=== PATIENT | female | born 1945 | race Caucasian/White ===

== ENCOUNTER 2017-07-20 05:40 | Outpatient (CLI) | payer MEDICARE ==
[~2017-07-20] VITALS: Ht 170.2 cm; Wt 95.3 kg
[2017-07-20] MEDS ORDERED: LEVO100T PO (15:58)
[2017-07-20] MEDS ORDERED: MELO7.5T46 PO (15:58)
[2017-07-20] MEDS ORDERED: BUPR150T14 PO (15:58)
[2017-07-20] MEDS ORDERED: ALPR0.5T7 PO (15:58)
[2017-07-20] MEDS ORDERED: CITA40TA11 PO (15:58)
[2017-07-20] MEDS ORDERED: METO50TA15 PO (15:58)
[2017-08-20] MEDS ORDERED: ACHD5005 PO (08:28)
[2017-08-20] MEDS ORDERED: ALPR0.5T7 PO (08:28)
== END 2017-07-20 16:01 ==
LOC: PREOP 05:40
PROVIDERS: ATTEND Urology
DX: Z01.818 Encounter for other preprocedural examination (principal)

== ENCOUNTER 2017-07-21 08:10 | Day surgery (SDC) | payer MEDICARE, OTHER ==
[~2017-07-21] VITALS: Ht 170.2 cm; Wt 95.3 kg
--- NOTE | 2017-07-21 06:57 | Progress Note-Pre Operative ---
Pre-Operative Progress Note H&P Reviewed The H&P was reviewed, patient examined and no changes noted. Date Seen by Provider: July 21, 2017 Time Seen by Provider: 06:56 Date H&P Reviewed: July 21, 2017 Time H&P Reviewed: 06:56 Pre-Operative Diagnosis: CYSTOCELE, MIXED INCONTINENCE, ISD, OAB LORE BULLOCK MD July 21, 2017 6:57 am
[~2017-07-21 08:10] MED LIST: ALPR0.5T7 PO; BUPR150T14 PO; CITA40TA11 PO; LEVO100T PO; MELO7.5T46 PO; METO50TA15 PO
[2017-07-21 08:25] VITALS: BP 165/67
[2017-07-21] MEDS ORDERED: cefTRIAXone INJECTION 1,000 MG in NS (IVPB) 50 ML IV ONE (08:30)
[2017-07-21] MEDS ORDERED: NS (IVPB) 50 ML ONE (08:46)
[2017-07-21] MEDS ORDERED: LACTATED RINGERS 1,000 ML IV PRN ×2 (09:07→10:07)
[2017-07-21] MEDS ORDERED: SCOPOLAMINE 1.5 MG (TRANSDERM-SCOP) PATCH ONE (10:02)
[2017-07-21] MEDS ORDERED: FAMOTIDINE 20MG/2ML IV (PEPCID) ONE (10:02)
[2017-07-21] MEDS ORDERED: ONDANSETRON 4 MG/2 ML (SDV) Z0FRAN ONE ×2 (10:02→10:12)
[2017-07-21] MEDS ORDERED: LIDOCAINE PF 2% 5 ML (XYLOCAINE) VIAL ONE (10:12)
[2017-07-21] MEDS ORDERED: proPOfol 200 MG/20 ML (DIPRIVAN) VIAL IV ONE (10:12)
[2017-07-21] MEDS ORDERED: fentaNYL INJECTION 100 MCG/2 ML AMP ONE (10:12)
[2017-07-21] MEDS ORDERED: SEVOFLURANE (ULTANE) 15 ML INHAL SOLN ONE ×4 (10:12→11:37)
[2017-07-21] MEDS ORDERED: DEXAMETHASONE 10 MG/ML (DECADRON) 1 ML VIAL ONE (10:12)
[2017-07-21] MEDS ORDERED: SCOPOLAMINE 1.5 MG (TRANSDERM-SCOP) PATCH TOP ONE (10:15)
[2017-07-21] MEDS ORDERED: FAMOTIDINE 20MG/2ML IV (PEPCID) IV ONE (10:15)
[2017-07-21] MEDS ORDERED: ONDANSETRON 4 MG/2 ML (SDV) Z0FRAN IV ONE (10:15)
[2017-07-21] MEDS ORDERED: ESTRADIOL VAGINAL CREAM 42.5 GM (ESTRACE) VG ONE (10:21)
[2017-07-21] MEDS ORDERED: LIDOCAINE/EPI 1%-1:200,000 (XYLOCAINE) 10 ML VIAL ONE (10:21)
[2017-07-21] MEDS ORDERED: NEOSTIGMINE 1 MG/ML 5 ML SYRINGE ONE (12:00)
[2017-07-21] MEDS ORDERED: GLYCOPYRROLATE 0.2 MG/ML (ROBINUL) 2 ML VIAL ONE (12:00)
[2017-07-21] MEDS ORDERED: ROCURONIUM 10 MG/ML 5 ML SYRINGE IV ONE (12:05)
--- NOTE | 2017-07-21 12:12 | Progress Note-Post Operative ---
Post-Operative Progess Note Surgeon (s)/Coffee Sommelier (s) Surgeon LORE BULLOCK MD Coffee Sommelier: N/A Pre-Operative Diagnosis CYSTOCELE, MIXED INCONTINENCE, ISD, OAB Post-Operative Diagnosis SAME Procedure & Operative Findings Date of Procedure 07/21/17 Procedure Performed/Findings ANTERIOR REPAIR, PVS, AND CYSTO Anesthesia Type GENERAL Estimated Blood Loss Estimated blood loss (mL): LESS THAN 50CC Specimens/Packing Specimens Removed NONE TO PATH Packing: ESTRACE KERLIX VAG PACK LORE BULLOCK MD July 21, 2017 12:12 pm
[2017-07-21] MEDS ORDERED: KETOROLAC 30 MG/ML VIAL ONE (12:37)
[2017-07-21] MEDS: KETOROLAC 30 MG/ML VIAL IV PRN ×2 (12:44→21:09)
[2017-07-21] MEDS ORDERED: morphine INJ 10 MG/ML 1ML (SYR OR VIAL) ONE (12:50)
[2017-07-21] MEDS ORDERED: morphine INJ 10 MG/ML 1ML (SYR OR VIAL) IVP PRN (13:15)
[2017-07-21] MEDS ORDERED: ONDANSETRON 4 MG/2 ML (SDV) Z0FRAN IVP PRN (13:15)
[2017-07-21] MEDS ORDERED: MEPERIDINE (DEMEROL) INJ 50 MG/ML IVP PRN (13:15)
[2017-07-21 13:30] VITALS: BP 132/79
[2017-07-21] MEDS ORDERED: CATHETER FLUSH 10 ML SYR IV PRN (14:30)
[2017-07-21] MEDS: LACTATED RINGERS 1,000 ML IV SCH ×2 (14:40→21:09)
[2017-07-21] MEDS: HYDROcodone/APAP 10 MG/325 MG (LORTAB) TAB PO PRN ×3 (14:43→22:13)
[2017-07-21 16:23] VITALS: BP 147/86
[2017-07-21 19:43] VITALS: BP 135/71
--- NOTE | 2017-07-21 22:08 | OPERATIVE REPORT ---
DATE OF SERVICE: 07/21/2017 PREOPERATIVE DIAGNOSES: 1. Cystocele. 2. Mixed urinary incontinence with overactive bladder and intrinsic sphincter deficiency. POSTOPERATIVE DIAGNOSES: 1. Cystocele. 2. Mixed urinary incontinence with overactive bladder and intrinsic sphincter deficiency. OPERATION PERFORMED: Anterior repair, pubovaginal sling and cystoscopy. SURGEON: Shakir Bullock MD ANESTHESIA: General. COMPLICATIONS: None. DESCRIPTION OF PROCEDURE: Under satisfactory general anesthesia, the patient in extended lithotomy position, her genitalia were prepped and draped in the usual sterile fashion with a separate vaginal prep. Catheter was inserted and the bladder was drained. Anterior vaginal wall was infiltrated with lidocaine. An incision was made vertically in the anterior wall for several centimeters. It was dissected free from the underlying fascia and the fascia was approximated with interrupted 2-0 Vicryl giving a good support to the bladder. I went ahead and passed the Solyx pubovaginal sling with the device using the described technique. The sling was sitting nicely under the mid urethra with no twisting or tension and passage of a curved hemostat easily between it and the underlying tissue. I removed the Garcia catheter and performed cystoscopy to confirm the integrity of the bladder, ureters and urethra with no foreign body and positioning of the sling under the mid urethra. I filled the bladder for at least half of it, removed the cystoscope and manual Valsalva maneuver that was negative. I reinserted the Garcia catheter draining clear fluid. I excised the excess vaginal mucosa. Then, I approximated the vaginal mucosa with a running 2-0 Vicryl suture. Needle, sponge and instrument counts were correct x2. An Estrace vaginal pack was left in the vagina. ESTIMATED BLOOD LOSS: Less than 50 mL, none of which was replaced. The patient tolerated the procedure and the anesthesia well and was sent to recovery room in stable condition. Job ID: [id number] DocumentID: [id number] Dictated Date: 07/21/2017 12:18:47 Resident Services Manager Date: 07/21/2017 22:07:54 Dictated By: SHAKIR BULLOCK MD
[2017-07-22 00:32] VITALS: BP 124/75
[2017-07-22] MEDS: LACTATED RINGERS 1,000 ML IV SCH (04:41)
[2017-07-22 04:42] VITALS: BP 149/80
--- NOTE | 2017-07-22 07:48 | Anesthesia-General Post-Op ---
General Patient Condition Mental Status/LOC: Same as Preop Cardiovascular: Satisfactory Nausea/Vomiting: Absent Respiratory: Satisfactory Pain: Controlled Complications: Absent Post Op Complications Complications None Follow Up Care/Instructions Patient Instructions None needed. Anesthesia/Patient Condition Patient Condition Patient is doing well, no complaints, stable vital signs, no apparent adverse anesthesia problems. No complications reported per nursing. CARMEN PACHECO CRNA July 22, 2017 07:47
[2017-07-22 07:56] VITALS: BP 152/74
[2017-07-22] MEDS ORDERED: LEVOFLOXACIN 250 MG/50 ML IVPB 50 ML IV SCH (12:14)
--- NOTE | 2017-07-22 12:31 | Progress Note-Urology ---
Progress Note-Urology Progress Notes/Assess & Plan Progress/Assessment & Plan DOING WELL. VOIDED WITH NO RESIDUAL AND NO LEAKAGE. HAPPY. HOME WITH INSTRUCTIONS Final Diagnosis INCONTINENCE AND CYSTOCELE LORE BULLOCK MD July 22, 2017 12:31 pm
--- NOTE | 2017-07-22 12:33 | Discharge Inst-Urology ---
Discharge Inst-Urology Discharge Medications New, Converted, or Re-newed RX: RX on Chart Patient Instructions/Follow Up Plan Please make appointment to been seen in office NEXT WEEK week. Rest till then Keep bowels soft and mpving, take Miralax daily showers, no bath Increase oral fluids for 48 hours and then as needed. Diet and Activity as tolerated. If questions or concerns contact your physician Or seek help at emergency department. LORE BULLOCK MD July 22, 2017 12:33 pm
[2017-07-22] MEDS: KETOROLAC 30 MG/ML VIAL IV PRN (12:51)
[2017-08-20] MEDS ORDERED: ALPR0.5T7 PO (08:28)
[2017-08-20] MEDS ORDERED: ACHD5005 PO (08:28)
== END 2017-07-22 13:20 | disposition home or self-care (01) ==
LOC: SDC 08:10 → WS 13:48 → SDC 07-22 13:20
PROVIDERS: ATTEND Urology
DX: N81.10 Cystocele, unspecified (principal); N39.46 Mixed incontinence; N32.81 Overactive bladder; N36.42 Intrinsic sphincter deficiency (ISD); I25.10 Atherosclerotic heart disease of native coronary artery without angina pectoris; I10 Essential (primary) hypertension; J44.9 Chronic obstructive pulmonary disease, unspecified; G47.33 Obstructive sleep apnea (adult) (pediatric); F17.210 Nicotine dependence, cigarettes, uncomplicated; Z95.1 Presence of aortocoronary bypass graft; Z79.899 Other long term (current) drug therapy
CPT/HCPCS: 87081; 94664

== ENCOUNTER 2017-08-08 20:27 | Inpatient (IN) | payer MEDICARE, OTHER ==
[~2017-08-08] VITALS: Ht 167.6 cm; Wt 96.8 kg
[2017-08-08 22:26] LABS: BILIRUBIN,URINE NEGATIVE (NEGATIVE); CLARITY,URINE CLEAR; COLOR,URINE YELLOW; GLUCOSE, URINE (UA) NEGATIVE (NEGATIVE); KETONES,URINE NEGATIVE (NEGATIVE); LEUKOCYTE ESTERASE ,URINE NEGATIVE (NEGATIVE); NITRITE,URINE NEGATIVE (NEGATIVE); PH,URINE 6 (5-9); PROTEIN,URINE NEGATIVE (NEGATIVE); UROBILINOGEN,URINE NORMAL (NORMAL)
[2017-08-08] MEDS ORDERED: NS IV 1000 ML 1,000 ML IV SCH (22:30)
[2017-08-08] MEDS ORDERED: fentaNYL INJECTION 100 MCG/2 ML AMP IVP ONE (22:30)
--- NOTE | 2017-08-08 22:31 | ED Abdominal Pain ---
General Chief Complaint: Abdominal/GI Problems Stated Complaint: LOWER ABD PAIN AFTER BLADDER SURGERY Source of Information: Patient Exam Limitations: No Limitations (ANTELMO BHAT STUDENT) History of Present Illness Date Seen by Provider: Aug 08, 2017 Time Seen by Provider: 22:26 Initial Comments Patient presents to the emergency room with complaints of sharp abdominal pain in the left lower quadrant area for 2 days. She denies any nausea or vomiting but reports having constipation for which she took milk of magnesia and now she reports diarrhea. She reports having a cystocele, rectocele, bladder sling procedure on Jul 20 2017 by . She reports that she has not had any complications from the surgery. Timing/Duration: 1-2 Days Severity/Quality: Moderate Location: LLQ Radiation: No Radiation Activities at Onset: None Associated Symptoms: Denies Symptoms (ANTELMO BHAT STUDENT) Severity/Quality: Aching Location: LLQ Radiation: No Radiation Associated Symptoms: No Fever/Chills, No Nausea/Vomiting (CEDRICK JAMES MD ) Allergies and Home Medications Allergies Coded Allergies: Iodinated Contrast- Oral and IV Dye (Verified Allergy, Unknown, HIVES, ) Sulfa (Sulfonamide Antibiotics) (Verified Allergy, Unknown, HIVES, 07/20/17 ) codeine (Verified Allergy, Unknown, NAUSEA, 07/20/17) lisinopril (Verified Allergy, Unknown, 08/09/17) Home Medications Alprazolam 0.5 Mg Tablet, 0.5 MG PO HS, (Reported) Bupropion HCl 150 Mg Tablet.er, 150 MG PO DAILY, (Reported) Citalopram Hydrobromide 40 Mg Tablet, 40 MG PO DAILY, (Reported) Levothyroxine Sodium 100 Mcg Tablet, 100 MCG PO DAILY, (Reported) Meloxicam 7.5 Mg Tablet, 7.5 MG PO DAILY PRN for MUSCLE SPASMS, (Reported) Metoprolol Tartrate 50 Mg Tablet, 50 MG PO DAILY, (Reported) Patient Home Medication List Home Medication List Reviewed: Yes (ANTELMO BHAT STUDENT) Home Medication List Reviewed: Yes (CEDRICK JAMES MD) Review of Systems Constitutional: see HPI; No chills, No diaphoresis EENTM: See HPI Respiratory: See HPI; Denies Cough Cardiovascular: See HPI; Denies Chest Pain Gastrointestinal: See HPI, Abdomen Distended, Abdominal Pain, Constipated, Diarrhea Genitourinary: See HPI; Denies Burning, Denies Discharge Musculoskeletal: see HPI; No back pain Skin: see HPI; No change in color Psychiatric/Neurological: See HPI; Denies Anxiety Endocrine: See HPI; Denies Excessive Sweating Hematologic/Lymphatic: See HPI; Denies Anemia (ANTELMO BHAT) All Other Systems Reviewed Negative Unless Noted: Yes (CEDRICK JAMES MD) Past Wifviqf-Rialqf-Ynsewp Hx Past Med/Social Hx: Reviewed Nursing Past Med/Soc Hx (ANTELMO BHAT) Past Med/Social Hx: Reviewed Nursing Past Med/Soc Hx (CEDRICK JAMES MD) Patient Social History Alcohol Use: Denies Use Recreational Drug Use: No Type Used: Cigarettes Recent Foreign Travel: No Contact w/Someone Who Travel: No Recent Hopitalizations: No (ANTELMO BHAT) Immunizations Up To Date Tetanus Booster (TDap): Unknown (ANTELMO BHAT) Seasonal Allergies Seasonal Allergies: No (ANTELMO BHAT) Past Medical History Surgeries: Yes (thyroid ablation) Adenoidectomy, Appendectomy, CABG, Gallbladder, Hysterectomy, Tonsillectomy Respiratory: Yes Sleep Apnea Currently Using CPAP: Yes Cardiac: Yes Coronary Artery Disease, High Cholesterol, Hypertension Neurological: Yes Headaches /Migraines MOBILE UI DESIGNER History: Hysterectomy Kidney Stones Gastrointestinal: Yes Gastroesophageal Reflux, Chronic Constipation, Diverticulosis Musculoskeletal: Yes Arthritis, Chronic Back Pain Endocrine: Yes (grave's disease) Cancer: No Psychosocial: Yes Anxiety, Depression Integumentary: No Blood Disorders: Yes (anemia prior to hyst) (ANTELMO BHAT) Family Medical History Reviewed Nursing Family Hx (ANTELMO BHAT) Reviewed Nursing Family Hx (CEDRICK JAMES MD) Physical Exam Vital Signs Capillary Refill : (ANTELMO BHAT STUDENT) General Appearance: WD/WN, no apparent distress HEENT: PERRL/EOMI, normal ENT inspection Neck: non-tender, full range of motion Respiratory: chest non-tender, lungs clear Cardiovascular: normal peripheral pulses, regular rate, rhythm Gastrointestinal: normal bowel sounds, distended, guarding, tenderness ( patient is very tender to the left lower quadrant area on exam.) Extremities: normal range of motion, non-tender Back: normal inspection, no CVA tenderness Neurologic/Psychiatric: alert, oriented x 3 Skin: normal color, warm/dry Lymphatic: no adenopathy (Y) (ANTELMO BHAT STUDENT) General Appearance: WD/WN, mild distress Cardiovascular: regular rate, rhythm, no murmur Gastrointestinal: soft, tenderness (patient is very tender to the left lower quadrant area on exam.) (CEDRICK JAMES MD) Focused Exam Lactate Level 08/09/17 00:15: (CEDRICK JAMES MD) Lactic Acid Level Laboratory Tests Test 08/09/17 00:15 (CEDRICK JAMES MD) Progress/Results/Core Measures Results/Orders Lab Results Laboratory Tests Test 08/08/17 22:10 08/09/17 00:15 Range/Units White Blood Count 10.8 4.3-11.0 10^3/uL Red Blood Count 4.96 4.35-5.85 10^6/uL Hemoglobin 14.7 11.5-16.0 G/DL Hematocrit 45 35-52 % Mean Corpuscular Volume 91 80-99 FL Mean Corpuscular Hemoglobin 30 25-34 PG Mean Corpuscular Hemoglobin Concent 33 32-36 G/DL Red Cell Distribution Width 14.9 H 10.0-14.5 % Platelet Count 275 130-400 10^3/uL Mean Platelet Volume 10.1 7.4-10.4 FL Neutrophils (%) (Auto) 58 42-75 % Lymphocytes (%) (Auto) 25 12-44 % Monocytes (%) (Auto) 15 H 0-12 % Eosinophils (%) (Auto) 2 0-10 % Basophils (%) (Auto) 1 0-10 % Neutrophils # (Auto) 6.2 1.8-7.8 X 10^3 Lymphocytes # (Auto) 2.7 1.0-4.0 X 10^3 Monocytes # (Auto) 1.6 H 0.0-1.0 X 10^3 Eosinophils # (Auto) 0.3 0.0-0.3 10^3/uL Basophils # (Auto) 0.1 0.0-0.1 10^3/uL Urine Color YELLOW Urine Clarity CLEAR Urine pH 6 5-9 Urine Specific Crewe 1.010 L 1.016-1.022 Urine Protein NEGATIVE NEGATIVE Urine Glucose (UA) NEGATIVE NEGATIVE Urine Ketones NEGATIVE NEGATIVE Urine Nitrite NEGATIVE NEGATIVE Urine Bilirubin NEGATIVE NEGATIVE Urine Urobilinogen NORMAL NORMAL MG/DL Urine Leukocyte Esterase NEGATIVE NEGATIVE Urine RBC (Auto) NEGATIVE NEGATIVE Urine RBC NONE /HPF Urine WBC NONE /HPF Urine Squamous Epithelial Cells 10-25 H /HPF Urine Crystals NONE /LPF Urine Bacteria TRACE /HPF Urine Casts NONE /LPF Urine Mucus NEGATIVE /LPF Urine Culture Indicated NO Sodium Level 137 135-145 MMOL/L Potassium Level 4.1 3.6-5.0 MMOL/L Chloride Level 103 98-107 MMOL/L Carbon Dioxide Level 21 21-32 MMOL/L Anion Gap 13 5-14 MMOL/L Blood Urea Nitrogen 17 7-18 MG/DL Creatinine 1.16 0.60-1.30 MG/DL Estimat Glomerular Filtration Rate 46 BUN/Creatinine Ratio 15 Glucose Level 86 70-105 MG/DL Calcium Level 10.0 8.5-10.1 MG/DL Total Bilirubin 1.2 H 0.1-1.0 MG/DL Aspartate Amino Transf (AST/SGOT) 11 5-34 U/L Alanine Aminotransferase (ALT/SGPT) 11 0-55 U/L Alkaline Phosphatase 142 H 40-136 U/L Total Protein 7.9 6.4-8.2 GM/DL Albumin 4.5 3.2-4.5 GM/DL Amylase Level 72 25-125 U/L Lipase 29 8-78 U/L (CEDRICK JAMES MD) My Orders Orders - CEDRICK JAMES MD Fentanyl Injection (Sublimaze Injection (08/08/17 22:30) Comprehensive Metabolic Panel (08/08/17 22:19) Lipase (08/08/17 22:19) Amylase (08/08/17 22:19) Ua Culture If Indicated (08/08/17 22:19) Saline Lock/Iv-Start (08/08/17 22:19) Cbc With Automated Diff (08/08/17 22:19) Ns Iv 1000 Ml (Sodium Chloride 0.9%) (08/08/17 22:30) Ct Abdomen/Pelvis Wo (08/08/17 23:28) Fentanyl Injection (Sublimaze Injection (08/09/17 00:10) Lactic Acid Analyzer (08/09/17 00:10) Blood Culture (08/09/17 00:10) Ceftriaxone Injection (Rocephin Injectio (08/09/17 00:15) (CEDRICK JAMES MD) Medications Given in ED Current Medications Medications Dose Ordered Sig/Forrest Route Start Time Stop Time Status Last Admin Dose Admin Ceftriaxone Sodium 1000 mg/ Sodium Chloride 50 ml @ 100 mls/hr ONCE ONCE IV 08/09/17 00:15 08/09/17 00:44 08/09/17 00:23 100 MLS/HR Fentanyl Citrate 50 mcg ONCE ONCE IVP 08/08/17 22:30 08/08/17 22:31 DC 08/08/17 22:37 50 MCG (CEDRICK JAMES MD) Progress Progress Note : Progress Note I have seen and evaluated the patient and agree with above except as indicated. I have directed the plan of care. Patient is here with left-sided abdominal pain. She did have bladder surgery few weeks ago is not having any problems from that. Denies fever currently. Tender on left abdomen. IV, labs, fentanyl [address] abdomen and pelvis ordered. This does show significant diverticulitis in the descending colon without perforation. He had a repeat dose of fentanyl because pain was fairly well out of control again. She lives in our from here. Given that she has persistent and control pain and other persistent symptoms, I believe outpatient therapy is not indicated. Have discussed the case with Dr. Chan and she agrees. Admit, inpatient status. Patient agrees with plan. Blood cultures and lactic acid ordered. Rocephin 1 g IV ordered after. (CEDRICK JAMES MD) Diagnostic Imaging Diagonstic Imaging: CT Plain Films/CT/US/NM/MRI: abdomen, pelvis Comments Diverticulitis in the descending colon. No fluid collection or perforation. [facility]ed[facility] (CEDRICK JAMES MD) Departure Communication (Admissions) Time/Spoke to Admitting Phy: 00:23 (CEDRICK JAMES MD) Impression Primary Impression: Diverticulitis of intestine Qualified Codes: K57.32 - Diverticulitis of large intestine without perforation or abscess without bleeding Disposition: ADMITTED INPATIENT Condition: Stable Admissions Decision to Admit Reason: Admit from ER (General) Decision to Admit/Date: Aug 09, 2017 Time/Decision to Admit Time: 00:23 (CEDRICK JAMES MD) Departure-Patient Inst. Referrals: NO,LOCAL PHYSICIAN (PCP/Family) Primary Care Physician ANTELMO BHAT STUDENT Aug 08, 2017 22:31 CEDRICK JAMES MD Aug 08, 2017 23:35
[2017-08-08 22:32] LABS: BACTERIA,URINE TRACE /HPF
[2017-08-08 22:33] LABS: BASOPHILS # (AUTO) 0.1 10^3/uL (0.0-0.1); BASOPHILS % (AUTO) 1 % (0-10); EOSINOPHILS # (AUTO) 0.3 10^3/uL (0.0-0.3); EOSINOPHILS % (AUTO) 2 % (0-10); HEMATOCRIT 45 % (35-52); HEMOGLOBIN 14.7 G/DL (11.5-16.0); LYMPHOCYTES # (AUTO) 2.7 X 10^3 (1.0-4.0); LYMPHOCYTES % (AUTO) 25 % (12-44); MEAN CORPUSCULAR HEMOGLOBIN 30 PG (25-34); MEAN CORPUSCULAR HGB CONC 33 G/DL (32-36); MEAN CORPUSCULAR VOLUME 91 FL (80-99); MEAN PLATELET VOLUME 10.1 FL (7.4-10.4); MONOCYTES # (AUTO) 1.6 X 10^3 (0.0-1.0); MONOCYTES % (AUTO) 15 % (0-12); NEUTROPHILS # (AUTO) 6.2 X 10^3 (1.8-7.8); NEUTROPHILS % (AUTO) 58 % (42-75); PLATELET COUNT 275 10^3/uL (130-400); RED BLOOD COUNT 4.96 10^6/uL (4.35-5.85); RED CELL DISTRIBUTION WIDTH 14.9 % (10.0-14.5); WHITE BLOOD COUNT 10.8 10^3/uL (4.3-11.0)
[2017-08-08 22:50] LABS: ALBUMIN 4.5 GM/DL (3.2-4.5); BILIRUBIN,TOTAL 1.2 MG/DL (0.1-1.0); CREATININE SERUM 1.16 MG/DL (0.60-1.30); POTASSIUM 4.1 MMOL/L (3.6-5.0); TOTAL PROTEIN 7.9 GM/DL (6.4-8.2)
[2017-08-09] MEDS ORDERED: fentaNYL INJECTION 100 MCG/2 ML AMP IVP STA (00:10)
[2017-08-09] MEDS ORDERED: cefTRIAXone INJECTION 1,000 MG in NS (IVPB) 50 ML IV ONE (00:15)
[2017-08-09 02:00] VITALS: BP 152/88
[2017-08-09] MEDS: fentaNYL INJECTION 100 MCG/2 ML AMP IVP PRN ×5 (02:27→21:39)
[2017-08-09 04:00] VITALS: BP 140/76
[2017-08-09 06:02] LABS: BASOPHILS # (AUTO) 0.1 10^3/uL (0.0-0.1); BASOPHILS % (AUTO) 1 % (0-10); EOSINOPHILS # (AUTO) 0.3 10^3/uL (0.0-0.3); EOSINOPHILS % (AUTO) 4 % (0-10); HEMATOCRIT 41 % (35-52); HEMOGLOBIN 13.4 G/DL (11.5-16.0); LYMPHOCYTES # (AUTO) 2.4 X 10^3 (1.0-4.0); LYMPHOCYTES % (AUTO) 28 % (12-44); MEAN CORPUSCULAR HEMOGLOBIN 30 PG (25-34); MEAN CORPUSCULAR HGB CONC 33 G/DL (32-36); MEAN CORPUSCULAR VOLUME 92 FL (80-99); MONOCYTES # (AUTO) 1.2 X 10^3 (0.0-1.0); MONOCYTES % (AUTO) 14 % (0-12); NEUTROPHILS # (AUTO) 4.5 X 10^3 (1.8-7.8); NEUTROPHILS % (AUTO) 54 % (42-75); PLATELET COUNT 222 10^3/uL (130-400); RED BLOOD COUNT 4.42 10^6/uL (4.35-5.85); RED CELL DISTRIBUTION WIDTH 14.6 % (10.0-14.5); WHITE BLOOD COUNT 8.3 10^3/uL (4.3-11.0)
[2017-08-09 06:25] LABS: CALCIUM 9.4 MG/DL (8.5-10.1); CREATININE SERUM 1.01 MG/DL (0.60-1.30); POTASSIUM 4.2 MMOL/L (3.6-5.0); TOTAL PROTEIN 6.7 GM/DL (6.4-8.2)
--- NOTE | 2017-08-09 07:23 | Diagnostic Imaging Report ---
PROCEDURE: CT abdomen and pelvis without contrast. TECHNIQUE: Multiple contiguous axial images were obtained through the abdomen and pelvis without the use of intravenous contrast. INDICATION: Bloody stools. FINDINGS: There is distal colonic and sigmoidal diverticulosis. At the junction of the descending and sigmoid colon, there is bowel wall thickening and anne-marie-diverticular and colonic edema consistent with active or acute diverticulitis. There is no extraluminal air or findings of a transmural perforation. There is no abscess or fluid collection. There is no resultant bowel obstruction. There is no hydronephrosis or opaque kidney stone. The liver is nonacute. The spleen, adrenals, pancreas are unremarkable. The gallbladder is surgically absent. No pathological bile duct dilatation. There is no appendicitis. There is no air within the urinary bladder lumen. IMPRESSION: 1. Findings of acute diverticulitis at junction of descending and sigmoid colon without evidence for obstruction, transmural perforation or abscess formation. 2. No other acute finding. Dictated by: Dictated on workstation # [id number]
[2017-08-09 08:00] VITALS: BP 149/83
[2017-08-09] MEDS ORDERED: SIMV40TA4 PO (11:58)
[2017-08-09] MEDS ORDERED: ASPI-983 PO (11:58)
[2017-08-09] MEDS ORDERED: LEVO88TA2 PO (11:58)
[2017-08-09] MEDS ORDERED: METO-370 PO (11:58)
[2017-08-09] MEDS ORDERED: PANT40TA3 PO (11:58)
[2017-08-09] MEDS ORDERED: CITA20TA9 PO (11:58)
[2017-08-09] MEDS ORDERED: PRAZ1CAP PO (11:58)
[2017-08-09] MEDS ORDERED: CYAN10006 PO (11:59)
[2017-08-09 12:00] VITALS: BP 117/71
--- NOTE | 2017-08-09 13:14 | Consultation ---
History of Present Illness History of Present Illness Patient Consulted On(sandra/time) 08/09/17 13:09 Date Seen by Provider: Aug 09, 2017 Time Seen by Provider: 13:09 Reason for Visit: L abdominal pain History of Present Illness Initial onset of constipation followed by diarrhea and left-sided abdominal pain. Increased severity of pain resulted in ER visit. Nonenhanced CT scan shows a short segment of thickened descending colon with diverticulae. g in the differential diagnosis. Given a past history of recurrent polyps, a mass lesion needs to be considered. Allergies and Home Medications Allergies Coded Allergies: Iodinated Contrast- Oral and IV Dye (Verified Allergy, Unknown, HIVES, ) Sulfa (Sulfonamide Antibiotics) (Verified Allergy, Unknown, HIVES, 07/20/17 ) codeine (Verified Allergy, Unknown, NAUSEA, 07/20/17) lisinopril (Verified Allergy, Unknown, 08/09/17) Home Medications Alprazolam 0.5 Mg Tablet, 0.5 MG PO HS, (Reported) Aspirin 81 Mg Tablet.dr, 81 MG PO DAILY, (Reported) Bupropion HCl 150 Mg Tablet.er, 150 MG PO DAILY, (Reported) Citalopram Hydrobromide 20 Mg Tablet, 20 MG PO DAILY, (Reported) Cyanocobalamin (Vitamin B-12) 1,000 Mcg Tablet, 1,000 MCG PO DAILY, (Reported) Levothyroxine Sodium 88 Mcg Tablet, 88 MCG PO DAILY, (Reported) LAST FILLED #90 18 Metoprolol Succinate 50 Mg Tab.er.24h, 50 MG PO DAILY, (Reported) LAST FILLED #90 18 Pantoprazole Sodium 40 Mg Tablet.dr, 40 MG PO DAILY PRN for HEARTBURN, (Reported ) Prazosin HCl 1 Mg Capsule, 1 MG PO DAILY, (Reported) LAST FILLED #90 18 Simvastatin 40 Mg Tablet, 40 MG PO HS, (Reported) Patient Home Medication List Home Medication List Reviewed: Yes Past Fivlokg-Vwnkla-Euqoxp Hx Past Med/Social Hx: Reviewed Nursing Past Med/Soc Hx Patient Social History Alcohol Use: Denies Use Recreational Drug Use: No Smoking Status: Light Tobacco Smoker Type Used: Cigarettes Recent Foreign Travel: No Contact w/Someone Who Travel: No Recent Infectious Disease Expo: No Recent Hopitalizations: No Immunizations Up To Date Tetanus Booster (TDap): Unknown Seasonal Allergies Seasonal Allergies: No Past Medical History Surgeries: Yes (thyroid ablation) Adenoidectomy, Appendectomy, CABG, Gallbladder, Hysterectomy, Tonsillectomy Respiratory: Yes Sleep Apnea Currently Using CPAP: Yes Cardiac: Yes Coronary Artery Disease, High Cholesterol, Hypertension Neurological: Yes Headaches /Migraines DBA History: Hysterectomy Kidney Stones Gastrointestinal: Yes Gastroesophageal Reflux, Chronic Constipation, Diverticulosis Musculoskeletal: Yes Arthritis, Chronic Back Pain Endocrine: Yes (grave's disease) Cancer: No Psychosocial: Yes Anxiety, Depression Integumentary: No Blood Disorders: Yes (anemia prior to hyst) Family Medical History Reviewed Nursing Family Hx Patient reports no known family medical history. Review of Systems-General Constitutional: malaise EENTM: no symptoms reported Respiratory: no symptoms reported Cardiovascular: no symptoms reported Gastrointestinal: see HPI Genitourinary: no symptoms reported Musculoskeletal: no symptoms reported Skin: no symptoms reported Psychiatric/Neurological: No Symptoms Reported Physical Exam-General Problems Physical Exam Vital Signs Vital Signs - First Documented 08/08/17 21:14 Temp 97.2 Pulse 65 Resp 20 B/P (MAP) 130/78 (95) Pulse Ox 97 O2 Delivery Room Air Capillary Refill : Less Than 3 Seconds General Appearance: mild distress Respiratory: lungs clear Cardiovascular: regular rate, rhythm Gastrointestinal: tenderness Rectal: deferred Neurologic/Psychiatric: alert Skin: warm/dry Comments laparoscopic scars without any incisional hernia. Severe tenderness over the left side of the abdomen, extending to the left upper quadrant. Assessment/Plan Assessment/Plan Admission Diagnosis/Plan lady with left-sided abdominal pain with a new changes in her bowel habits. Personal history of recurrent polyps. Thickened descending colon with diverticula. Reasonable to treat with IV antibiotics and follow closely. Her previous colonoscopy reports would be requested from the outside hospital. If her clinical signs do not improve in 48 hours, a repeat CT scan would be obtained Admission Status: Inpatient Order (span 2 midnights) Clinical Quality Measures DVT/VTE Risk/Contraindication: Risk Factor Score Per Nursin RFS Level Per Nursing on Admit: 4+=Very High ADRIANA MCDONOUGH MD Aug 09, 2017 13:13
[2017-08-09] MEDS: metroNIDAZOLE 500MG/100ML IVPB 100 ML IV SCH ×2 (13:17→21:39)
[2017-08-09] MEDS: LACTATED RINGERS 1,000 ML IV SCH (13:17)
--- NOTE | 2017-08-09 16:03 | History & Physical-Hospitalist ---
History of Present Illness HPI/Chief Complaint The patient was a 72-year-old white female who presented to the emergency room yesterday with complaints of left lower quadrant abdominal pain. CT scan suggested diverticulitis in the sigmoid colon area. She reports that she has had repeated episodes of diverticulitis going back as long as 5 years ago. Her last episode was in April however she is unable to remember whether this was April 2016 or . During the first attack 5 years ago she had red blood in her stool. She has had colonoscopies and [place] but is unable to remember how long ago her last colonoscopy was. There have apparently been polyps and polypectomy use with these as well she states that it had been recommended that she go to a one-year schedule on her colonoscopies. I reviewed her CT scan and am concerned about what appears to be thickened colonic wall Just distal to the splenic flexure. Source: patient Date Seen 08/09/17 Time Seen by Provider: 16:00 Attending Physician Jennifer Chan MD PCP No,Local Physician Referring Physician Date of Admission Aug 09, 2017 at 00:26 Home Medications & Allergies Home Medications Reviewed patient Home Medication Reconciliation performed by pharmacy medication reconciliations avionics repair technician and/or nursing. Patients Allergies have been reviewed. Allergies Allergies Coded Allergies Iodinated Contrast- Oral and IV Dye (Verified Allergy, Unknown, HIVES, 07/20/17 ) Sulfa (Sulfonamide Antibiotics) (Verified Allergy, Unknown, HIVES, 07/20/17) codeine (Verified Allergy, Unknown, NAUSEA, 07/20/17) lisinopril (Verified Allergy, Unknown, 08/09/17) Past Scexzxl-Rlvvep-Zaxlgl Hx Past Med/Social Hx: Reviewed Nursing Past Med/Soc Hx Patient Social History Alcohol Use: Denies Use Recreational Drug Use: No Smoking Status: Light Tobacco Smoker Type Used: Cigarettes Physical Abuse Screen: No Sexual Abuse: No Recent Foreign Travel: No Contact w/other who traveled: No Recent Hopitalizations: No Recent Infectious Disease Expo: No Immunizations Up To Date Tetanus Booster (TDap): Unknown Seasonal Allergies Seasonal Allergies: No Past Medical History Surgeries: Adenoidectomy, Appendectomy, CABG, Gallbladder, Hysterectomy, Tonsillectomy Currently Using CPAP: Yes Cardiac: Coronary Artery Disease, High Cholesterol, Hypertension Neurological: Headaches /Migraines Hysterectomy Genitourinary: Kidney Stones Gastrointestinal: Gastroesophageal Reflux, Chronic Constipation, Diverticulosis Musculoskeletal: Arthritis, Chronic Back Pain Psychosocial: Anxiety, Depression History of Blood Disorders: Yes (anemia prior to hyst) Family History Reviewed Nursing Family Hx Patient reports no known family medical history. Review of Systems Constitutional: see HPI EENTM: no symptoms reported Respiratory: no symptoms reported Cardiovascular: no symptoms reported Gastrointestinal: see HPI Genitourinary: no symptoms reported, other (patient had a recent bladder procedure. Function has been apparently improved since that time) Musculoskeletal: no symptoms reported Skin: no symptoms reported Psychiatric/Neurological: No Symptoms Reported Physical Exam Physical Exam Vital Signs Vital Signs - First Documented 08/08/17 21:14 Temp 97.2 Pulse 65 Resp 20 B/P (MAP) 130/78 (95) Pulse Ox 97 O2 Delivery Room Air Capillary Refill : Less Than 3 Seconds General Appearance: Mild Distress, Moderate Distress Results Results/Procedures Labs Laboratory Tests 08/08/17 22:10 08/09/17 05:32 Patient resulted labs reviewed. Assessment/Plan Admission Diagnosis Sigmoid diverticulitis Admission Status: Inpatient Order (span 2 midnights) Reason for Inpatient Admission: Antibiotic treatment of diverticulitis Assessment and Plan Nothing by mouth status/clear liquids. IV antibiotics Clinical Quality Measures DVT/VTE Risk/Contraindication: Risk Factor Score Per Nursin RFS Level Per Nursing on Admit: 4+=Very High PADMINI WALKER MD Aug 09, 2017 16:03
[2017-08-09] MEDS: ONDANSETRON 4 MG/2 ML (SDV) Z0FRAN IVP PRN (16:19)
[2017-08-09] MEDS ORDERED: meTOproloL SUCCINATE 50 MG (TOPROL XL) TAB PO SCH (18:00)
[2017-08-09] MEDS ORDERED: meTOproloL SUCCINATE 50 MG (TOPROL XL) TAB PO ONE (18:01)
[2017-08-09 19:19] VITALS: BP 146/68
[2017-08-09] MEDS: SIMvastatin 40 MG (ZOCOR) TAB PO SCH (21:39)
[2017-08-09] MEDS: ALPRAZolam 0.5 MG (XANAX) TAB PO SCH (21:39)
[2017-08-10] VITALS: BP 172/77
[2017-08-10] MEDS: cefTRIAXone 1 GM/NS 50 ML IVPB IV SCH ×2 (01:51)
[2017-08-10] MEDS: LACTATED RINGERS 1,000 ML IV SCH ×2 (01:51→11:22)
[2017-08-10] MEDS: fentaNYL INJECTION 100 MCG/2 ML AMP IVP PRN ×5 (02:34→21:41)
[2017-08-10] MEDS: LEVOTHYROXINE 88 MCG (LEVOTHORID) TAB PO SCH (05:59)
[2017-08-10] MEDS: metroNIDAZOLE 500MG/100ML IVPB 100 ML IV SCH ×3 (05:59→21:49)
[2017-08-10 08:00] VITALS: BP 159/74
[2017-08-10] MEDS: meTOproloL SUCCINATE 50 MG (TOPROL XL) TAB PO SCH (08:31)
[2017-08-10] MEDS: ASPIRIN E.C. 81 MG (ECOTRIN) TAB PO SCH (08:31)
[2017-08-10] MEDS: buPROPion SR 150 MG (WELLBUTRIN SR) TAB PO SCH (08:31)
[2017-08-10] MEDS ORDERED: PRAZOSIN HCL 1 MG PO SCH (09:00)
[2017-08-10] MEDS ORDERED: NON-FORMULARY MEDICATION 1 EA EA (Bupropion HCl (Bupropion HCl Sr) 150 MG) PO SCH (09:00)
--- NOTE | 2017-08-10 13:32 | Progress Note (SOAP) ---
Subjective Date Seen by Provider: Aug 10, 2017 Time Seen by Provider: 12:55 Subjective/Events-last exam pain over the left side of abdomen much improved. Having liquid stools and passing some flatus. Afebrile. Vital signs stable. Review of Systems General: No Chills, No Night Sweats, No Fatigue, No Malaise HEENT: No Head Aches, No Eye Pain, No Ear Pain, No Dysphasia, No Sinus Congestion, No Post Nasal Drip, No Sore Throat Pulmonary: No Dyspnea, No Cough, No Pleuritic Chest Pain Cardiovascular: No: Chest Pain, Palpitations, Orthopnea, Paroxysmal Noc. Dyspnea, Edema, Lt Headedness Gastrointestinal: Abdominal Pain Genitourinary: No Dysuria, No Frequency, No Incontinence, No Hematuria, No Retention Musculoskeletal: No: other, neck pain, shoulder pain, arm pain, back pain, hand pain, leg pain, foot pain Neurological: No: Weakness, Numbness, Incoordination, Change in speech, Confusion, Seizures, Other Focused Exam Lactate Level 08/09/17 00:15: Lactic Acid Level 0.78 Objective Exam Vital Signs Date Time Temp Pulse Resp B/P (MAP) Pulse Ox O2 Delivery O2 Flow Rate FiO2 08/10/17 08:00 98.6 45 18 159/74 (102) 95 Room Air 08/10/17 00:00 97.3 48 16 172/77 (108) 96 Room Air 08/09/17 19:19 97.3 54 20 146/68 (94) 98 Room Air 08/09/17 17:40 97.8 63 16 97 Room Air I & O 08/10/17 07:00 Intake Total 4909 ml Output Total 3950 ml Balance 959 ml Capillary Refill : Less Than 3 Seconds General Appearance: Anxious Neck: Normal Inspection Respiratory: Lungs Clear Cardiovascular: Regular Rate, Rhythm Gastrointestinal: tenderness Extremity: Normal Inspection, No Calf Tenderness Neurologic/Psychiatric: Oriented x3 Skin: Warm/Dry Other comments tenderness over the left side of abdomen much decreased. No rebound guarding Results Lab Microbiology 08/09/17 Blood Culture - Preliminary, Resulted No growth Assessment/Plan Assessment/Plan Assess & Plan/Chief Complaint lady with left-sided abdominal pain with a new changes in her bowel habits. Personal history of recurrent polyps. Thickened descending colon with diverticula. Reasonable to treat with IV antibiotics and follow closely. Her previous colonoscopy reports would be requested from the outside hospital. If her clinical signs do not improve in 48 hours, a repeat CT scan would be obtained. lady with left-sided abdominal pain. Thickened descending colon with evidence of diverticulitis. We'll continue IV antibiotics and plan on outpatient colonoscopy in 2-3 weeks Final Diagnosis diverticulitis Clinical Quality Measures DVT/VTE Risk/Contraindication: Risk Factor Score Per Nursin RFS Level Per Nursing on Admit: 4+=Very High ADRIANA MCDONOUGH MD Aug 10, 2017 13:32
--- NOTE | 2017-08-10 13:51 | Progress Note-Hospitalist ---
Progress Note Progress Notes/Assess & Plan Date Seen 08/10/17 Time Seen by Provider: 13:49 Assessment & Plan The patient reports her pain to be somewhat less today. She continues to have liquid stools. She asked about eating however I do believe that it is prudent to continue clear liquid diet. Physical exam: Lungs are clear to auscultation. CV is regular without murmur. Abdomen is breaker tender with guarding in the left lower quadrant. There is no rigidity. Bowel sounds are hypoactive. Extremities show no pedal edema. Impression: Sigmoid diverticulitis Plan: IV fluids, bowel rest, IV antibiotics Focused Exam Lactate Level 08/09/17 00:15: Lactic Acid Level 0.78 PADMINI WALKER MD Aug 10, 2017 13:51
[2017-08-10 16:53] VITALS: BP 129/62
[2017-08-10] MEDS: ALPRAZolam 0.5 MG (XANAX) TAB PO SCH (21:41)
[2017-08-10] MEDS: SIMvastatin 40 MG (ZOCOR) TAB PO SCH (21:55)
[2017-08-11] VITALS: BP 144/68
[2017-08-11] MEDS: fentaNYL INJECTION 100 MCG/2 ML AMP IVP PRN ×6 (00:26→21:46)
[2017-08-11] MEDS: ONDANSETRON 4 MG/2 ML (SDV) Z0FRAN IVP PRN ×2 (00:26→21:46)
[2017-08-11] MEDS: LACTATED RINGERS 1,000 ML IV SCH ×3 (00:30→12:09)
[2017-08-11] MEDS: cefTRIAXone 1 GM/NS 50 ML IVPB IV SCH ×2 (02:23)
[2017-08-11] MEDS: metroNIDAZOLE 500MG/100ML IVPB 100 ML IV SCH ×3 (06:37→21:38)
[2017-08-11] MEDS: LEVOTHYROXINE 88 MCG (LEVOTHORID) TAB PO SCH (06:37)
[2017-08-11 08:00] VITALS: BP 169/72
[2017-08-11] MEDS: buPROPion SR 150 MG (WELLBUTRIN SR) TAB PO SCH (09:21)
[2017-08-11] MEDS: meTOproloL SUCCINATE 50 MG (TOPROL XL) TAB PO SCH (09:21)
[2017-08-11] MEDS: ASPIRIN E.C. 81 MG (ECOTRIN) TAB PO SCH (09:21)
--- NOTE | 2017-08-11 11:30 | Progress Note-Hospitalist ---
Subjective HPI/CC On Admission Date Seen by Provider: Aug 11, 2017 Time Seen by Provider: 10:30 The patient was a 72-year-old white female who presented to the emergency room yesterday with complaints of left lower quadrant abdominal pain. CT scan suggested diverticulitis in the sigmoid colon area. She reports that she has had repeated episodes of diverticulitis going back as long as 5 years ago. Her last episode was in April however she is unable to remember whether this was April 2016 or . During the first attack 5 years ago she had red blood in her stool. She has had colonoscopies and [place] but is unable to remember how long ago her last colonoscopy was. There have apparently been polyps and polypectomy use with these as well she states that it had been recommended that she go to a one-year schedule on her colonoscopies. I reviewed her CT scan and am concerned about what appears to be thickened colonic wall Just distal to the splenic flexure. Subjective/Events-last exam Patient about the same when I saw her this morning Pain is relieved with pain medication IV fluids are maintained Clear liquids are maintained Loose stools continue Severe diverticulitis noted on CT scan I appreciate Dr. Chavez consultation and recommendations Patient denies smoking heavily but she does report smoking occasionally Review of Systems General: Fatigue, Malaise Gastrointestinal: Abdominal Pain, Diarrhea Focused Exam Lactate Level 08/09/17 00:15: Lactic Acid Level 0.78 Objective Exam Vital Signs Vital Signs Date Time Temp Pulse Resp B/P (MAP) Pulse Ox O2 Delivery O2 Flow Rate FiO2 08/11/17 16:50 98.0 08/11/17 16:10 53 18 172/77 (108) 97 Room Air Capillary Refill : Less Than 3 Seconds General Appearance: No Apparent Distress, WD/WN, Chronically ill Respiratory: Lungs Clear, Normal Breath Sounds Cardiovascular: Regular Rate, Rhythm, No Edema Gastrointestinal: Soft Neurologic/Psychiatric: Alert, Oriented x3, No Motor/Sensory Deficits, Normal Mood/Affect Results/Procedures Lab Patient resulted labs reviewed. Assessment/Plan Assessment and Plan Assess & Plan/Chief Complaint Assessment: Severe acute diverticulitis Hypertension Smoker Plan: Maintain IV fluids Advance diet per general surgery Restarted all home meds Hold statin Add Norvasc due to hypertension [id number] Add Lovenox for DVT prophylaxis Maintain SCDs Physical therapy evaluation Diagnosis/Problems Diagnosis/Problems (1) Acute diverticulitis Status: Acute (2) Hypertension Status: Chronic Qualifiers: Hypertension type: essential hypertension Qualified Codes: I10 - Essential (primary) hypertension (3) Smoker Status: Chronic (4) Hyperlipemia Status: Chronic Qualifiers: Hyperlipidemia type: mixed hyperlipidemia Qualified Codes: E78.2 - Mixed hyperlipidemia (5) Obesity Status: Chronic Qualifiers: Obesity type: due to excess calories Obesity classification: adult class 1 (BMI 30 - 34.9) Serious obesity comorbidity presence: without serious comorbidity Body mass index: BMI 34.0-34.9 Qualified Codes: E66.09 - Other obesity due to excess calories; Z68.34 - Body mass index (bmi) 34.0-34.9, adult Clinical Quality Measures DVT/VTE Risk/Contraindication: Risk Factor Score Per Nursin RFS Level Per Nursing on Admit: 4+=Very High UZAIR PALACIOS DO Aug 11, 2017 11:30
--- NOTE | 2017-08-11 14:13 | Progress Note (SOAP) ---
Subjective Date Seen by Provider: Aug 11, 2017 Time Seen by Provider: 13:15 Subjective/Events-last exam left-sided abdominal pain much improved. Review of Systems General: No Chills, No Night Sweats, No Fatigue, No Malaise HEENT: No Head Aches, No Eye Pain, No Ear Pain, No Dysphasia, No Sinus Congestion, No Post Nasal Drip, No Sore Throat Pulmonary: No Dyspnea, No Cough, No Pleuritic Chest Pain Cardiovascular: No: Chest Pain, Palpitations, Orthopnea, Paroxysmal Noc. Dyspnea, Edema, Lt Headedness Gastrointestinal: Abdominal Pain Genitourinary: No Dysuria, No Frequency, No Incontinence, No Hematuria, No Retention Musculoskeletal: No: other, neck pain, shoulder pain, arm pain, back pain, hand pain, leg pain, foot pain Neurological: No: Weakness, Numbness, Incoordination, Change in speech, Confusion, Seizures, Other Focused Exam Lactate Level 08/09/17 00:15: Lactic Acid Level 0.78 Objective Exam Vital Signs Date Time Temp Pulse Resp B/P (MAP) Pulse Ox O2 Delivery O2 Flow Rate FiO2 08/11/17 12:20 97.9 08/11/17 11:47 97.9 08/11/17 08:00 97.9 45 18 169/72 (104) 97 Room Air 08/11/17 00:00 97.0 50 16 144/68 (93) 96 Room Air 08/10/17 16:53 98.0 62 16 129/62 (84) 97 Room Air I & O 08/11/17 07:00 Intake Total 6624 ml Output Total 5650 ml Balance 974 ml Capillary Refill : Less Than 3 Seconds General Appearance: Anxious Neck: Normal Inspection Gastrointestinal: non tender, soft Extremity: Normal Inspection Neurologic/Psychiatric: Oriented x3 Skin: Warm/Dry Results Lab Microbiology 08/09/17 Blood Culture - Preliminary, Resulted No growth Assessment/Plan Assessment/Plan Assess & Plan/Chief Complaint lady with left-sided abdominal pain with a new changes in her bowel habits. Personal history of recurrent polyps. Thickened descending colon with diverticula. Reasonable to treat with IV antibiotics and follow closely. Her previous colonoscopy reports would be requested from the outside hospital. If her clinical signs do not improve in 48 hours, a repeat CT scan would be obtained. lady with left-sided abdominal pain. Thickened descending colon with evidence of diverticulitis. We'll continue IV antibiotics and plan on outpatient colonoscopy in 2-3 weeks 08/11/17:lady with resolving sigmoid diverticulitis. Thickened proximal descending colon. Will advance diet slowly and possibly discharge in 48 hours. Plan on outpatient colonoscopy in 2-3 weeks Final Diagnosis diverticulitis of colon Clinical Quality Measures DVT/VTE Risk/Contraindication: Risk Factor Score Per Nursin RFS Level Per Nursing on Admit: 4+=Very High ADRIANA MCDONOUGH MD Aug 11, 2017 2:13 pm
[2017-08-11 16:10] VITALS: BP 172/77
[2017-08-11] MEDS: PRAZOSIN 1 MG CAPSULE (MINIPRESS) NON-FORMULARY PO SCH (17:53)
[2017-08-11] MEDS ORDERED: amLODIPine 5 MG (NORVASC) TAB PO NR (20:15)
[2017-08-11] MEDS ORDERED: ALPRAZolam 0.25 MG (XANAX) TAB PO PRN (20:15)
[2017-08-11] MEDS ORDERED: ACETAMINOPHEN 500 MG TAB (TYLENOL) PO PRN (20:15)
[2017-08-11] MEDS ORDERED: SIMvastatin 40 MG (ZOCOR) TAB ONE (21:36)
[2017-08-11] MEDS: ENOXAPARIN 40 MG/0.4 ML (LOVENOX) SYR SC SCH (21:39)
[2017-08-11] MEDS: ALPRAZolam 0.5 MG (XANAX) TAB PO SCH (21:43)
[2017-08-12] VITALS: BP 139/63
[2017-08-12] MEDS: LACTATED RINGERS 1,000 ML IV SCH ×3 (00:12→22:37)
[2017-08-12] MEDS: cefTRIAXone 1 GM/NS 50 ML IVPB IV SCH ×2 (02:17)
[2017-08-12] MEDS: fentaNYL INJECTION 100 MCG/2 ML AMP IVP PRN ×3 (03:09→18:57)
[2017-08-12 05:53] LABS: BASOPHILS % (AUTO) 0 % (0-10); EOSINOPHILS # (AUTO) 0.3 10^3/uL (0.0-0.3); EOSINOPHILS % (AUTO) 5 % (0-10); HEMATOCRIT 38 % (35-52); HEMOGLOBIN 12.4 G/DL (11.5-16.0); LYMPHOCYTES # (AUTO) 2.5 X 10^3 (1.0-4.0); LYMPHOCYTES % (AUTO) 38 % (12-44); MEAN CORPUSCULAR HEMOGLOBIN 30 PG (25-34); MEAN CORPUSCULAR HGB CONC 33 G/DL (32-36); MEAN CORPUSCULAR VOLUME 92 FL (80-99); MEAN PLATELET VOLUME 10.2 FL (7.4-10.4); MONOCYTES # (AUTO) 0.7 X 10^3 (0.0-1.0); MONOCYTES % (AUTO) 10 % (0-12); NEUTROPHILS # (AUTO) 3.1 X 10^3 (1.8-7.8); NEUTROPHILS % (AUTO) 46 % (42-75); PLATELET COUNT 236 10^3/uL (130-400); RED BLOOD COUNT 4.14 10^6/uL (4.35-5.85); RED CELL DISTRIBUTION WIDTH 14.1 % (10.0-14.5); WHITE BLOOD COUNT 6.6 10^3/uL (4.3-11.0)
[2017-08-12] MEDS: LEVOTHYROXINE 88 MCG (LEVOTHORID) TAB PO SCH (06:10)
[2017-08-12] MEDS: metroNIDAZOLE 500MG/100ML IVPB 100 ML IV SCH ×3 (06:10→21:32)
[2017-08-12 06:13] LABS: ALANINE AMINOTRANSFERASE 11 U/L (0-55); ALBUMIN 3.6 GM/DL (3.2-4.5); ALKALINE PHOSPHATASE 99 U/L (40-136); BILIRUBIN,TOTAL 0.5 MG/DL (0.1-1.0); BUN/CREATININE RATIO 10; CALCIUM 9.2 MG/DL (8.5-10.1); CARBON DIOXIDE 24 MMOL/L (21-32); CHLORIDE 108 MMOL/L (98-107); CREATININE SERUM 0.86 MG/DL (0.60-1.30); GFR ESTIMATED > 60; GLUCOSE 89 MG/DL (70-105); POTASSIUM 3.6 MMOL/L (3.6-5.0); SODIUM 142 MMOL/L (135-145); TOTAL PROTEIN 6.1 GM/DL (6.4-8.2)
[2017-08-12 08:00] VITALS: BP 145/62
[2017-08-12] MEDS: meTOproloL SUCCINATE 50 MG (TOPROL XL) TAB PO SCH (09:26)
[2017-08-12] MEDS: ASPIRIN E.C. 81 MG (ECOTRIN) TAB PO SCH (09:26)
[2017-08-12] MEDS: amLODIPine 5 MG (NORVASC) TAB PO SCH (09:26)
[2017-08-12] MEDS: buPROPion SR 150 MG (WELLBUTRIN SR) TAB PO SCH (09:26)
[2017-08-12] MEDS: PRAZOSIN 1 MG CAPSULE (MINIPRESS) NON-FORMULARY PO SCH (09:26)
--- NOTE | 2017-08-12 09:46 | Physical Therapy Evaluation ---
PT Evaluation-General Medical Diagnosis Admission Date Aug 09, 2017 at 00:26 Medical Diagnosis: acute diverticulitis Onset Date: Aug 09, 2017 Therapy Diagnosis Therapy Diagnosis: debility Height/Weight Height (Feet): 5 Height (Inches): 6.00 Weight (Pounds): 211 Weight (Ounces): 0.0 Precautions Precautions/Isolations: Standard Precautions Weight Bear Status Right Lower Extremity: Right Full Weight Bearing Left Lower Extremity: Left Full Weight Bearing Referral Physician: Han Reason for Referral: Evaluation/Treatment Medical History Pertinent Medical History: CABG, CAD, HTN Current History ED with sharp abdominal pain x 2 days/s/p bladder sling and rectocele (July 20, 2017) Reviewed History: Yes Social History Home: Single Level Current Living Status: Alone Prior/Core FIM Prior Level of Function Functional Wheelwright Measure 0=Not Assessed/NA 4=Minimal Assistance 1=Total Assistance 5=Supervision or Setup 2=Maximal Assistance 6=Modified Wheelwright 3=Moderate Assistance 7=Complete Wheelwright Bed Mobility: 7 Transfers (B,C,W/C) (FIM): 7 Gait: 7 Locomotion: 7 PT Evaluation-Current Subjective Patient agrees to PT. She states she thought she wasn't suppose to walk or exercise due to her surgery. PT educated patient on importance of mobility to prevent possible negative side effects of not. Pain Numeric Pain Scale: 8 Location: Left, Lower Location Body Site: Abdomen Pain Description: Pressure, Sharp Objective Patient Orientation: Normal For Age Problem Solving: Fair Attachments: IV ROM/Strength ROM Lower Extremities bilateral LE WNL Strength Lower Extremities 4+/5 grossly bilaterally Integumentary/Posture Integumentary refer to nursing notes Bowel Incontinence: No Bladder Incontinence: No Posture WFL Neuromuscular (Tone, Coordination, Reflexes) grossly intact Sensory Vision: Functional Hearing: Functional Sensation Right Lower Extremit: Intact Sensation Left Lower Extremity: Intact Transfers Functional Wheelwright Measure 0=Not Assessed/NA 4=Minimal Assistance 1=Total Assistance 5=Supervision or Setup 2=Maximal Assistance 6=Modified Wheelwright 3=Moderate Assistance 7=Complete Wheelwright Transfers (B, C, W/C) (FIM): 7 Scootin Rollin Supine to/from Sit: 7 Sit to/from Stand: 7 Gait Mode of Locomotion: Walk Anticipated Mode of Locomotion: Walk Gait (FIM): 7 Distance (FIM): 3=150 ft Distance: 300' Gait Level of Assist: 7 Gait Assistive Device: None Comments/Gait Description safe and functional gait sequence Balance Sitting Static: Normal Sitting Dynamic: Normal Standing Static: Normal Standing Dynamic: Normal Assessment/Needs 72 y.o. female, is currently at independent OF with all gross motor skills safely and does not require skilled PT at this time. PT instructed patient to ambulate PRN in hallway. RN notified. Rehab Potential: Fair PT Plan Treatment/Plan Treatment Plan: Discontinue PT, goals met Treatment Plan: Other Treatment Duration: Aug 12, 2017 Frequency: 1 time per week Estimated Hrs Per Day: .5 hour per day Patient and/or Family Agrees t: Yes Time/GCodes Time In: 820 Time Out: 839 Total Billed Treatment Time: 19 Total Billed Treatment 1 visit [facility] 19 min JASWINDER GARZA PT Aug 12, 2017 09:46
[2017-08-12] MEDS: ONDANSETRON 4 MG/2 ML (SDV) Z0FRAN IVP PRN (10:40)
--- NOTE | 2017-08-12 11:01 | Progress Note-Hospitalist ---
Subjective HPI/CC On Admission Date Seen by Provider: Aug 12, 2017 Time Seen by Provider: 10:30 The patient was a 72-year-old white female who presented to the emergency room yesterday with complaints of left lower quadrant abdominal pain. CT scan suggested diverticulitis in the sigmoid colon area. She reports that she has had repeated episodes of diverticulitis going back as long as 5 years ago. Her last episode was in April however she is unable to remember whether this was April 2016 or . During the first attack 5 years ago she had red blood in her stool. She has had colonoscopies and [place] but is unable to remember how long ago her last colonoscopy was. There have apparently been polyps and polypectomy use with these as well she states that it had been recommended that she go to a one-year schedule on her colonoscopies. I reviewed her CT scan and am concerned about what appears to be thickened colonic wall Just distal to the splenic flexure. Subjective/Events-last exam Patient having more right sided abdominal pain today so I did confer with Dr. Chavez and he will repeat CT scan and will receive IV steroids prior to contrast since she does have sensitivity to the contrast I She is nauseated so Zofran will be given Patient overall feels like she is not progressing so will pursue abscess formation as cause of the new pain but maintain antibiotics in the meantime Gentle IV fluids maintained Did get up with physical therapy and I added Lovenox due to the decreased ambulation and DVT risk that she has. Review of Systems General: Fatigue, Malaise Gastrointestinal: Nausea, Abdominal Pain Objective Exam Vital Signs Vital Signs Date Time Temp Pulse Resp B/P (MAP) Pulse Ox O2 Delivery O2 Flow Rate FiO2 08/12/17 08:00 97.6 80 18 145/62 (89) 93 Room Air Capillary Refill : Less Than 3 Seconds General Appearance: WD/WN, Chronically ill, Mild Distress Respiratory: Lungs Clear, Normal Breath Sounds, Decreased Breath Sounds Cardiovascular: Regular Rate, Rhythm, No Edema Gastrointestinal: Distended, Guarding, Tenderness Neurologic/Psychiatric: Alert, Oriented x3, No Motor/Sensory Deficits, Normal Mood/Affect Results/Procedures Lab Laboratory Tests 08/12/17 05:10 Patient resulted labs reviewed. Assessment/Plan Assessment and Plan Assess & Plan/Chief Complaint Assessment: Severe acute diverticulitis Hypertension Smoker Plan: Maintain IV fluids Restarted all home meds and added Norvasc Hold statin Add Lovenox for DVT prophylaxis Maintain SCDs Physical therapy evaluation Repeat CT scan today per Dr Chavez Diagnosis/Problems Diagnosis/Problems (1) Acute diverticulitis Status: Acute (2) Hypertension Status: Chronic Qualifiers: Hypertension type: essential hypertension Qualified Codes: I10 - Essential (primary) hypertension (3) Smoker Status: Chronic (4) Hyperlipemia Status: Chronic Qualifiers: Hyperlipidemia type: mixed hyperlipidemia Qualified Codes: E78.2 - Mixed hyperlipidemia (5) Obesity Status: Chronic Qualifiers: Obesity type: due to excess calories Obesity classification: adult class 1 (BMI 30 - 34.9) Serious obesity comorbidity presence: without serious comorbidity Body mass index: BMI 34.0-34.9 Qualified Codes: E66.09 - Other obesity due to excess calories; Z68.34 - Body mass index (bmi) 34.0-34.9, adult (6) Abdominal pain Status: Acute Qualifiers: Abdominal location: right upper quadrant Qualified Codes: R10.11 - Right upper quadrant pain Clinical Quality Measures DVT/VTE Risk/Contraindication: Risk Factor Score Per Nursin RFS Level Per Nursing on Admit: 4+=Very High UZAIR PALACIOS DO Aug 12, 2017 11:01
[2017-08-12] MEDS ORDERED: methylPREDNISolone 125 MG (Solu-MEDROL) VIAL IV NR (11:30)
[2017-08-12] MEDS ORDERED: diphenhydrAMINE 50 MG/ML INJ (BENADRYL) IVP NR (11:30)
[2017-08-12] MEDS ORDERED: DIATRIZOATE MEGLUM/SODIUM 37% 120 ML (GASTROGRAFIN) PO ONE (12:45)
[2017-08-12] MEDS ORDERED: NS 250 ML (IVPB) BAG IV ONE (12:45)
[2017-08-12] MEDS ORDERED: IOHEXOL 350 MG/ML 100 ML (OMNIPAQUE 350) VIAL IV ONE (12:45)
[2017-08-12] MEDS ORDERED: RECEIVED CONTRAST (Hold Metformin) IV SCH (12:45)
--- NOTE | 2017-08-12 14:25 | Progress Note (SOAP) ---
Subjective Date Seen by Provider: Aug 12, 2017 Time Seen by Provider: 11:25 Subjective/Events-last exam Patient reports increased pain over the left side of the abdomen and the suprapubic area and therefore CT scan was repeated with rectal contrast and IV after premedication with steroids and Benadryl. Mid sigmoid colon appears thickened and inflamed. No pericolic abscess. No pelvic abscess. We'll continue IV antibiotics Review of Systems General: No Chills, No Night Sweats, No Fatigue, No Malaise HEENT: No Head Aches, No Eye Pain, No Ear Pain, No Dysphasia, No Sinus Congestion, No Post Nasal Drip, No Sore Throat Pulmonary: No Dyspnea, No Cough, No Pleuritic Chest Pain Cardiovascular: No: Chest Pain, Palpitations, Orthopnea, Paroxysmal Noc. Dyspnea, Edema, Lt Headedness Gastrointestinal: Abdominal Pain Musculoskeletal: No: other, neck pain, shoulder pain, arm pain, back pain, hand pain, leg pain, foot pain Neurological: No: Weakness, Numbness, Incoordination, Change in speech, Confusion, Seizures, Other Objective Exam Vital Signs Date Time Temp Pulse Resp B/P (MAP) Pulse Ox O2 Delivery O2 Flow Rate FiO2 08/12/17 08:00 97.6 80 18 145/62 (89) 93 Room Air 08/12/17 00:00 98.4 51 18 139/63 (88) 95 Room Air 08/11/17 16:50 98.0 08/11/17 16:10 98.0 53 18 172/77 (108) 97 Room Air I & O 08/12/17 07:00 Intake Total 4677 ml Output Total 2400 ml Balance 2277 ml Capillary Refill : Less Than 3 Seconds General Appearance: Anxious Neck: Normal Inspection Cardiovascular: Regular Rate, Rhythm Gastrointestinal: tenderness Extremity: Normal Inspection, No Calf Tenderness Neurologic/Psychiatric: Oriented x3 Skin: Warm/Dry Other comments Increased tenderness over the left side of the abdomen extending to the suprapubic region. Results Lab Laboratory Tests 08/12/17 05:10: White Blood Count 6.6, Red Blood Count 4.14L, Hemoglobin 12.4, Hematocrit 38, Mean Corpuscular Volume 92, Mean Corpuscular Hemoglobin 30, Mean Corpuscular Hemoglobin Concent 33, Red Cell Distribution Width 14.1, Platelet Count 236, Mean Platelet Volume 10.2, Neutrophils (%) (Auto) 46, Lymphocytes (%) (Auto) 38 , Monocytes (%) (Auto) 10, Eosinophils (%) (Auto) 5, Basophils (%) (Auto) 0, Neutrophils # (Auto) 3.1, Lymphocytes # (Auto) 2.5, Monocytes # (Auto) 0.7, Eosinophils # (Auto) 0.3, Basophils # (Auto) 0.0, Sodium Level 142, Potassium Level 3.6, Chloride Level 108H, Carbon Dioxide Level 24, Anion Gap 10, Blood Urea Nitrogen 9, Creatinine 0.86, Estimat Glomerular Filtration Rate > 60, BUN/ Creatinine Ratio 10, Glucose Level 89, Calcium Level 9.2, Total Bilirubin 0.5, Aspartate Amino Transf (AST/SGOT) 16, Alanine Aminotransferase (ALT/SGPT) 11, Alkaline Phosphatase 99, Total Protein 6.1L, Albumin 3.6 Microbiology 08/09/17 Blood Culture - Preliminary, Resulted No growth Assessment/Plan Assessment/Plan Assess & Plan/Chief Complaint lady with left-sided abdominal pain with a new changes in her bowel habits. Personal history of recurrent polyps. Thickened descending colon with diverticula. Reasonable to treat with IV antibiotics and follow closely. Her previous colonoscopy reports would be requested from the outside hospital. If her clinical signs do not improve in 48 hours, a repeat CT scan would be obtained. lady with left-sided abdominal pain. Thickened descending colon with evidence of diverticulitis. We'll continue IV antibiotics and plan on outpatient colonoscopy in 2-3 weeks 08/11/17:lady with resolving sigmoid diverticulitis. Thickened proximal descending colon. Will advance diet slowly and possibly discharge in 48 hours. Plan on outpatient colonoscopy in 2-3 weeks 08/12/17: Lady with resolving sigmoid diverticulitis. Repeat CT negative for pericolic abscess. We'll continue current management. Outpatient colonoscopy in 2-3 weeks Final Diagnosis Diverticulitis of colon Clinical Quality Measures DVT/VTE Risk/Contraindication: Risk Factor Score Per Nursin RFS Level Per Nursing on Admit: 4+=Very High ADRIANA MCDONOUGH MD Aug 12, 2017 2:25 pm
--- NOTE | 2017-08-12 14:39 | Diagnostic Imaging Report ---
PROCEDURE: CT abdomen and pelvis with contrast. TECHNIQUE: Multiple contiguous axial images were obtained through the abdomen and pelvis after administration of intravenous contrast. INDICATION: Abdominal pain. COMPARISON; Recent CT abdomen/pelvis exam 08/08/2017. No distortion of pericolonic fat near the junction of the sigmoid and descending colon. This finding is felt to be related to acute diverticulitis. On this exam, the distortion of the pericolonic fat in this region has diminished. There is only a small amount of residual edema/inflammation present. A small amount of free fluid has developed low in the pelvis in the interval since the prior exam. On this date, the colon is opacified. There does appear to be roughly 3 cm defect within the midportion of the sigmoid colon. (Image 69 of 93, series 2). This finding may merely be secondary to peristalsis or to spasm. The possibility that there is a neoplastic mass in this area should still be considered however. I would recommend endoscopy be performed for further study. No other mass or constricting lesion involving the colon is identified. Evaluation of the cord for small lesions is limited however due to the residual fecal material throughout the colon. The overall appearance the abdomen and pelvis has not changed adversely otherwise. There is no acute abnormality noted. Lung bases are clear. The bone windows show no sign of a fracture or destructive lesion. IMPRESSION: 1. There are mixed results. The edema/inflammation of the pericolonic fat about the junction of the sigmoid and descending colon has diminished. There is now a small amount of free fluid present but there is no diverticular mass or abscess visualized. However, there is now a question of an intraluminal neoplastic mass involving the mid portion of the sigmoid colon. Endoscopy would be recommended for further evaluation. 2. The overall appearance of the abdomen and pelvis is otherwise stable. 3. These results were discussed with Dr. Chavez. Dictated by: Dictated on workstation # [id number]
[2017-08-12 17:22] VITALS: BP 122/70
[2017-08-12] MEDS: ALPRAZolam 0.5 MG (XANAX) TAB PO SCH (20:09)
[2017-08-12] MEDS: ENOXAPARIN 40 MG/0.4 ML (LOVENOX) SYR SC SCH (20:09)
[2017-08-13 00:21] VITALS: BP 132/72
[2017-08-13] MEDS: LACTATED RINGERS 1,000 ML IV SCH ×2 (00:25→11:50)
[2017-08-13] MEDS: cefTRIAXone 1 GM/NS 50 ML IVPB IV SCH ×2 (01:08)
[2017-08-13] MEDS: fentaNYL INJECTION 100 MCG/2 ML AMP IVP PRN ×4 (02:25→20:36)
[2017-08-13] MEDS: metroNIDAZOLE 500MG/100ML IVPB 100 ML IV SCH ×3 (05:08→23:07)
[2017-08-13] MEDS: LEVOTHYROXINE 88 MCG (LEVOTHORID) TAB PO SCH (05:37)
[2017-08-13 05:47] LABS: BASOPHILS % (AUTO) 0 % (0-10); EOSINOPHILS % (AUTO) 0 % (0-10); HEMATOCRIT 37 % (35-52); HEMOGLOBIN 12.3 G/DL (11.5-16.0); LYMPHOCYTES # (AUTO) 0.8 X 10^3 (1.0-4.0); LYMPHOCYTES % (AUTO) 12 % (12-44); MEAN CORPUSCULAR HEMOGLOBIN 30 PG (25-34); MEAN CORPUSCULAR HGB CONC 34 G/DL (32-36); MEAN CORPUSCULAR VOLUME 90 FL (80-99); MEAN PLATELET VOLUME 10.2 FL (7.4-10.4); MONOCYTES # (AUTO) 0.2 X 10^3 (0.0-1.0); MONOCYTES % (AUTO) 3 % (0-12); NEUTROPHILS # (AUTO) 5.9 X 10^3 (1.8-7.8); NEUTROPHILS % (AUTO) 85 % (42-75); PLATELET COUNT 235 10^3/uL (130-400); RED BLOOD COUNT 4.07 10^6/uL (4.35-5.85); RED CELL DISTRIBUTION WIDTH 13.5 % (10.0-14.5)
[2017-08-13 06:08] LABS: ALANINE AMINOTRANSFERASE 13 U/L (0-55); ALBUMIN 3.6 GM/DL (3.2-4.5); ALKALINE PHOSPHATASE 100 U/L (40-136); BILIRUBIN,TOTAL 0.4 MG/DL (0.1-1.0); BUN/CREATININE RATIO 14; CALCIUM 9.3 MG/DL (8.5-10.1); CARBON DIOXIDE 22 MMOL/L (21-32); CHLORIDE 107 MMOL/L (98-107); CREATININE SERUM 0.83 MG/DL (0.60-1.30); GFR ESTIMATED > 60; GLUCOSE 130 MG/DL (70-105); POTASSIUM 3.5 MMOL/L (3.6-5.0); SODIUM 139 MMOL/L (135-145); TOTAL PROTEIN 6.2 GM/DL (6.4-8.2)
[2017-08-13] MEDS: amLODIPine 5 MG (NORVASC) TAB PO SCH (07:44)
[2017-08-13] MEDS: meTOproloL SUCCINATE 50 MG (TOPROL XL) TAB PO SCH (07:44)
[2017-08-13] MEDS: ASPIRIN E.C. 81 MG (ECOTRIN) TAB PO SCH (07:44)
[2017-08-13] MEDS: PRAZOSIN 1 MG CAPSULE (MINIPRESS) NON-FORMULARY PO SCH (07:45)
[2017-08-13] MEDS: buPROPion SR 150 MG (WELLBUTRIN SR) TAB PO SCH (07:45)
[2017-08-13 08:00] VITALS: BP 164/77
--- NOTE | 2017-08-13 11:52 | Progress Note-Hospitalist ---
Subjective HPI/CC On Admission Date Seen by Provider: Aug 13, 2017 Time Seen by Provider: 11:00 The patient was a 72-year-old white female who presented to the emergency room yesterday with complaints of left lower quadrant abdominal pain. CT scan suggested diverticulitis in the sigmoid colon area. She reports that she has had repeated episodes of diverticulitis going back as long as 5 years ago. Her last episode was in April however she is unable to remember whether this was April 2016 or . During the first attack 5 years ago she had red blood in her stool. She has had colonoscopies and [place] but is unable to remember how long ago her last colonoscopy was. There have apparently been polyps and polypectomy use with these as well she states that it had been recommended that she go to a one-year schedule on her colonoscopies. I reviewed her CT scan and am concerned about what appears to be thickened colonic wall Just distal to the splenic flexure. Subjective/Events-last exam Patient feeling about the same but maybe a little better. Repeat CT scan yesterday showed improvement in no evidence of abscess formation Discussed case with Dr. Chavez yesterday Pain is about the same and this is going to be slow recovery She constantly ask for more food and I told her that bowel rest would help recovery Overall patient very weak and cannot go home until acute diverticulitis is resolved with IV antibiotics and IV fluids and bowel rest She is able to ambulate around but she still is very weak Review of Systems Gastrointestinal: Abdominal Pain, Diarrhea Objective Exam Vital Signs Vital Signs Date Time Temp Pulse Resp B/P (MAP) Pulse Ox O2 Delivery O2 Flow Rate FiO2 08/13/17 08:00 98.0 68 18 164/77 (106) 95 Room Air Capillary Refill : Less Than 3 SecondsLess Than 3 Seconds General Appearance: No Apparent Distress, WD/WN, Chronically ill Respiratory: Lungs Clear, Normal Breath Sounds Cardiovascular: Regular Rate, Rhythm, No Edema Gastrointestinal: Tenderness Neurologic/Psychiatric: Alert, Oriented x3, No Motor/Sensory Deficits, Normal Mood/Affect Results/Procedures Lab Laboratory Tests 08/13/17 05:20 Patient resulted labs reviewed. Assessment/Plan Assessment and Plan Assess & Plan/Chief Complaint Assessment: Severe acute diverticulitis Hypertension Smoker Plan: Maintain IV fluids Restarted all home meds and added Norvasc Hold statin Add Lovenox for DVT prophylaxis Maintain SCDs Physical therapy evaluation Advance diet per general surgery recommendations but very slow recovery Diagnosis/Problems Diagnosis/Problems (1) Acute diverticulitis Status: Acute (2) Hypertension Status: Chronic Qualifiers: Hypertension type: essential hypertension Qualified Codes: I10 - Essential (primary) hypertension (3) Smoker Status: Chronic (4) Hyperlipemia Status: Chronic Qualifiers: Hyperlipidemia type: mixed hyperlipidemia Qualified Codes: E78.2 - Mixed hyperlipidemia (5) Obesity Status: Chronic Qualifiers: Obesity type: due to excess calories Obesity classification: adult class 1 (BMI 30 - 34.9) Serious obesity comorbidity presence: without serious comorbidity Body mass index: BMI 34.0-34.9 Qualified Codes: E66.09 - Other obesity due to excess calories; Z68.34 - Body mass index (bmi) 34.0-34.9, adult (6) Abdominal pain Status: Acute Qualifiers: Abdominal location: right upper quadrant Qualified Codes: R10.11 - Right upper quadrant pain Clinical Quality Measures DVT/VTE Risk/Contraindication: Risk Factor Score Per Nursin RFS Level Per Nursing on Admit: 4+=Very High UZAIR PALACIOS DO Aug 13, 2017 11:52
--- NOTE | 2017-08-13 13:17 | Progress Note (SOAP) ---
Subjective Date Seen by Provider: Aug 13, 2017 Time Seen by Provider: 13:15 Subjective/Events-last exam Patient expresses fear of staying in the hospital longer. Does not appear to have symptoms of overt depression. Abdominal pain slightly improved. Diarrhea continues. Review of Systems General: No Chills, No Night Sweats, No Fatigue, No Malaise HEENT: No Head Aches, No Eye Pain, No Ear Pain, No Dysphasia, No Sinus Congestion, No Post Nasal Drip, No Sore Throat Pulmonary: No Dyspnea, No Cough, No Pleuritic Chest Pain Cardiovascular: No: Chest Pain, Palpitations, Orthopnea, Paroxysmal Noc. Dyspnea, Edema, Lt Headedness Gastrointestinal: Abdominal Pain Genitourinary: No Dysuria, No Frequency, No Incontinence, No Hematuria, No Retention Musculoskeletal: No: other, neck pain, shoulder pain, arm pain, back pain, hand pain, leg pain, foot pain Neurological: No: Weakness, Numbness, Incoordination, Change in speech, Confusion, Seizures, Other Objective Exam Vital Signs Date Time Temp Pulse Resp B/P (MAP) Pulse Ox O2 Delivery O2 Flow Rate FiO2 08/13/17 08:00 98.0 68 18 164/77 (106) 95 Room Air 08/13/17 00:21 97.8 64 17 132/72 (92) 96 Room Air 08/12/17 17:22 98.1 53 14 122/70 (87) 93 Room Air 08/12/17 16:00 Room Air I & O 08/13/17 07:00 Intake Total 5090 ml Output Total 4400 ml Balance 690 ml Capillary Refill : Less Than 3 SecondsLess Than 3 Seconds General Appearance: Anxious Respiratory: Lungs Clear Cardiovascular: Regular Rate, Rhythm Gastrointestinal: non tender, soft Neurologic/Psychiatric: Alert Skin: Warm/Dry Results Lab Laboratory Tests 08/13/17 05:20: White Blood Count 7.0, Red Blood Count 4.07L, Hemoglobin 12.3, Hematocrit 37, Mean Corpuscular Volume 90, Mean Corpuscular Hemoglobin 30, Mean Corpuscular Hemoglobin Concent 34, Red Cell Distribution Width 13.5, Platelet Count 235, Mean Platelet Volume 10.2, Neutrophils (%) (Auto) 85H, Lymphocytes (%) (Auto) 12 , Monocytes (%) (Auto) 3, Eosinophils (%) (Auto) 0, Basophils (%) (Auto) 0, Neutrophils # (Auto) 5.9, Lymphocytes # (Auto) 0.8L, Monocytes # (Auto) 0.2, Eosinophils # (Auto) 0.0, Basophils # (Auto) 0.0, Sodium Level 139, Potassium Level 3.5L, Chloride Level 107, Carbon Dioxide Level 22, Anion Gap 10, Blood Urea Nitrogen 12, Creatinine 0.83, Estimat Glomerular Filtration Rate > 60, BUN/ Creatinine Ratio 14, Glucose Level 130H, Calcium Level 9.3, Total Bilirubin 0.4 , Aspartate Amino Transf (AST/SGOT) 14, Alanine Aminotransferase (ALT/SGPT) 13, Alkaline Phosphatase 100, Total Protein 6.2L, Albumin 3.6 Microbiology 08/09/17 Blood Culture - Preliminary, Resulted No growth Assessment/Plan Assessment/Plan Assess & Plan/Chief Complaint lady with left-sided abdominal pain with a new changes in her bowel habits. Personal history of recurrent polyps. Thickened descending colon with diverticula. Reasonable to treat with IV antibiotics and follow closely. Her previous colonoscopy reports would be requested from the outside hospital. If her clinical signs do not improve in 48 hours, a repeat CT scan would be obtained. lady with left-sided abdominal pain. Thickened descending colon with evidence of diverticulitis. We'll continue IV antibiotics and plan on outpatient colonoscopy in 2-3 weeks 08/11/17:lady with resolving sigmoid diverticulitis. Thickened proximal descending colon. Will advance diet slowly and possibly discharge in 48 hours. Plan on outpatient colonoscopy in 2-3 weeks 08/12/17: Lady with resolving sigmoid diverticulitis. Repeat CT negative for pericolic abscess. We'll continue current management. Outpatient colonoscopy in 2-3 weeks 08/13/17: Lady with resolving diverticulitis. Will advance to full liquids. Use oral pain medications. Lovenox for thromboprophylaxis Final Diagnosis Diverticulitis Clinical Quality Measures DVT/VTE Risk/Contraindication: Risk Factor Score Per Nursin RFS Level Per Nursing on Admit: 4+=Very High ADRIANA MCDONOUGH MD Aug 13, 2017 1:16 pm
[2017-08-13 16:34] VITALS: BP 128/65
[2017-08-13] MEDS: ALPRAZolam 0.5 MG (XANAX) TAB PO SCH (20:36)
[2017-08-13] MEDS: ENOXAPARIN 40 MG/0.4 ML (LOVENOX) SYR SC SCH (20:37)
[2017-08-13] MEDS: PANTOPRAZOLE 40 MG (PROTONIX) TAB PO PRN (23:13)
[2017-08-13 23:15] VITALS: BP 166/70
[2017-08-14] MEDS: LACTATED RINGERS 1,000 ML IV SCH ×3 (00:41→22:03)
[2017-08-14] MEDS: cefTRIAXone 1 GM/NS 50 ML IVPB IV SCH ×2 (01:07)
[2017-08-14] MEDS: fentaNYL INJECTION 100 MCG/2 ML AMP IVP PRN ×3 (02:56→16:16)
[2017-08-14] MEDS: LEVOTHYROXINE 88 MCG (LEVOTHORID) TAB PO SCH (06:16)
[2017-08-14] MEDS: metroNIDAZOLE 500MG/100ML IVPB 100 ML IV SCH ×3 (06:17→22:03)
[2017-08-14 08:06] VITALS: BP 137/65
[2017-08-14] MEDS: meTOproloL SUCCINATE 50 MG (TOPROL XL) TAB PO SCH (08:49)
[2017-08-14] MEDS: ASPIRIN E.C. 81 MG (ECOTRIN) TAB PO SCH (09:07)
[2017-08-14] MEDS: buPROPion SR 150 MG (WELLBUTRIN SR) TAB PO SCH (09:07)
[2017-08-14] MEDS: amLODIPine 5 MG (NORVASC) TAB PO SCH (09:07)
[2017-08-14] MEDS: PRAZOSIN 1 MG CAPSULE (MINIPRESS) NON-FORMULARY PO SCH (09:08)
--- NOTE | 2017-08-14 10:47 | Progress Note-Hospitalist ---
Subjective HPI/CC On Admission Date Seen by Provider: Aug 14, 2017 Time Seen by Provider: 10:30 The patient was a 72-year-old white female who presented to the emergency room yesterday with complaints of left lower quadrant abdominal pain. CT scan suggested diverticulitis in the sigmoid colon area. She reports that she has had repeated episodes of diverticulitis going back as long as 5 years ago. Her last episode was in April however she is unable to remember whether this was April 2016 or . During the first attack 5 years ago she had red blood in her stool. She has had colonoscopies and [place] but is unable to remember how long ago her last colonoscopy was. There have apparently been polyps and polypectomy use with these as well she states that it had been recommended that she go to a one-year schedule on her colonoscopies. I reviewed her CT scan and am concerned about what appears to be thickened colonic wall Just distal to the splenic flexure. Subjective/Events-last exam Patient continues to have a great deal of left lower quadrant discomfort. We discussed at length the possibility of getting colon resection in the future. She did not walk as much yesterday but plans to this afternoon. Bowel movements are loose Review of Systems Gastrointestinal: Abdominal Pain, Diarrhea Neurological: Weakness Objective Exam Vital Signs Vital Signs Date Time Temp Pulse Resp B/P (MAP) Pulse Ox O2 Delivery O2 Flow Rate FiO2 08/14/17 08:06 97.6 45 18 137/65 (89) 96 Room Air Capillary Refill : Less Than 3 SecondsLess Than 3 Seconds General Appearance: WD/WN, Chronically ill HEENT: Normal ENT Inspection Neck: Non Tender, Supple Respiratory: Lungs Clear, Normal Breath Sounds, No Accessory Muscle Use, No Respiratory Distress Cardiovascular: Bradycardia Gastrointestinal: Soft, Abnormal Bowel Sounds, Guarding, Tenderness Rectal: Deferred Extremity: No Pedal Edema Results/Procedures Lab Patient resulted labs reviewed. Assessment/Plan Assessment and Plan Assess & Plan/Chief Complaint Acute on chronic diverticulitis Bradycardia will hold Toprol today-asymptomatic, will place on telemetry History of hypertension good control Plan to increase ambulation. Diagnosis/Problems Diagnosis/Problems (1) Bradycardia with 41-50 beats per minute Status: Acute (2) Hypertension Status: Chronic Qualifiers: Hypertension type: essential hypertension Qualified Codes: I10 - Essential (primary) hypertension (3) Abdominal pain Status: Acute Qualifiers: Abdominal location: right upper quadrant Qualified Codes: R10.11 - Right upper quadrant pain (4) Acute diverticulitis Status: Acute Clinical Quality Measures DVT/VTE Risk/Contraindication: Risk Factor Score Per Nursin RFS Level Per Nursing on Admit: 4+=Very High BRADLEY BOYLE MD Aug 14, 2017 10:47
--- NOTE | 2017-08-14 11:11 | Progress Note (SOAP) ---
Subjective Date Seen by Provider: Aug 14, 2017 Time Seen by Provider: 10:50 Subjective/Events-last exam Patient seen with Dr. Zuñiga. Patient reports doing well but still having LLQ abdominal pain. Reports that she has been taking PO pain meds but they do not work as well as the IV pain meds. She reports she has taking hydrocodone in the past and tolerated well. Occasional nausea but no vomiting. Tolerating DYS1 diet. Having liquid stools. Reports ambulating some but not enough because of the pain. Objective Exam Vital Signs Date Time Temp Pulse Resp B/P (MAP) Pulse Ox O2 Delivery O2 Flow Rate FiO2 08/14/17 08:06 97.6 45 18 137/65 (89) 96 Room Air 08/13/17 23:15 97.8 62 20 166/70 (102) 96 Room Air 08/13/17 16:34 97.8 58 18 128/65 (86) 97 Room Air I & O 08/14/17 07:00 Intake Total 5894 ml Output Total 5650 ml Balance 244 ml Capillary Refill : Less Than 3 SecondsLess Than 3 Seconds General Appearance: No Apparent Distress, WD/WN Neck: Full Range of Motion, Normal Inspection, Non Tender, Supple Respiratory: Lungs Clear, Normal Breath Sounds, No Accessory Muscle Use, No Respiratory Distress Cardiovascular: Regular Rate, Rhythm, No Edema Gastrointestinal: normal bowel sounds, soft, tenderness (LLQ) Extremity: Normal Capillary Refill, Normal Inspection, Normal Range of Motion, No Pedal Edema Neurologic/Psychiatric: Alert, Oriented x3 Skin: Normal Color, Warm/Dry Results Lab Microbiology 08/09/17 Blood Culture - Preliminary, Resulted No growth Assessment/Plan Assessment/Plan Assess & Plan/Chief Complaint A 72 year old female with acute episode of diverticulitis. She reports that she has had episodes of diverticulitis in the past. She also has a Personal history of recurrent polyps. VSS. Will continue with IV fluids and abx. Continue diet for now. Continue nausea meds prn. Will increase PO pain meds to lortab. Clinical Quality Measures DVT/VTE Risk/Contraindication: Risk Factor Score Per Nursin RFS Level Per Nursing on Admit: 4+=Very High CHINTAN MITCHELL [employer] Aug 14, 2017 11:11 am
[2017-08-14 11:26] VITALS: BP 174/84
[2017-08-14] MEDS: PANTOPRAZOLE 40 MG (PROTONIX) TAB PO PRN (16:16)
[2017-08-14] MEDS: HYDROcodone/APAP 5 MG/325 MG (LORTAB) TAB PO PRN ×2 (16:16→22:06)
[2017-08-14] MEDS: ONDANSETRON 4 MG/2 ML (SDV) Z0FRAN IVP PRN (16:16)
[2017-08-14 16:20] VITALS: BP 142/77
[2017-08-14] MEDS: ALPRAZolam 0.5 MG (XANAX) TAB PO SCH (20:32)
[2017-08-14] MEDS: ENOXAPARIN 40 MG/0.4 ML (LOVENOX) SYR SC SCH (20:32)
[2017-08-15] VITALS: BP 139/67
[2017-08-15] MEDS: cefTRIAXone 1 GM/NS 50 ML IVPB IV SCH ×2 (02:40)
[2017-08-15] MEDS: LEVOTHYROXINE 88 MCG (LEVOTHORID) TAB PO SCH (05:37)
[2017-08-15] MEDS: HYDROcodone/APAP 5 MG/325 MG (LORTAB) TAB PO PRN ×4 (05:37→22:13)
[2017-08-15] MEDS: metroNIDAZOLE 500MG/100ML IVPB 100 ML IV SCH ×3 (05:37→21:23)
[2017-08-15 07:55] VITALS: BP 161/74
[2017-08-15] MEDS: ASPIRIN E.C. 81 MG (ECOTRIN) TAB PO SCH (08:47)
[2017-08-15] MEDS: PANTOPRAZOLE 40 MG (PROTONIX) TAB PO PRN (08:47)
[2017-08-15] MEDS: buPROPion SR 150 MG (WELLBUTRIN SR) TAB PO SCH (08:47)
[2017-08-15] MEDS: PRAZOSIN 1 MG CAPSULE (MINIPRESS) NON-FORMULARY PO SCH (08:48)
[2017-08-15] MEDS: meTOproloL SUCCINATE 50 MG (TOPROL XL) TAB PO SCH (08:48)
[2017-08-15] MEDS: amLODIPine 5 MG (NORVASC) TAB PO SCH (08:51)
[2017-08-15] MEDS: LACTATED RINGERS 1,000 ML IV SCH ×2 (08:52→21:22)
--- NOTE | 2017-08-15 09:40 | Progress Note-Hospitalist ---
Subjective HPI/CC On Admission Date Seen by Provider: Aug 15, 2017 Time Seen by Provider: 09:00 The patient was a 72-year-old white female who presented to the emergency room yesterday with complaints of left lower quadrant abdominal pain. CT scan suggested diverticulitis in the sigmoid colon area. She reports that she has had repeated episodes of diverticulitis going back as long as 5 years ago. Her last episode was in April however she is unable to remember whether this was April 2016 or . During the first attack 5 years ago she had red blood in her stool. She has had colonoscopies and [place] but is unable to remember how long ago her last colonoscopy was. There have apparently been polyps and polypectomy use with these as well she states that it had been recommended that she go to a one-year schedule on her colonoscopies. I reviewed her CT scan and am concerned about what appears to be thickened colonic wall Just distal to the splenic flexure. Subjective/Events-last exam Patient is feeling better today she walked yesterday in the hallways and is interested in eating something more substantial. Review of Systems Gastrointestinal: Abdominal Pain, Diarrhea Objective Exam Vital Signs Vital Signs Date Time Temp Pulse Resp B/P (MAP) Pulse Ox O2 Delivery O2 Flow Rate FiO2 08/15/17 07:55 97.7 51 18 161/74 (103) 97 Room Air Capillary Refill : Less Than 3 SecondsLess Than 3 Seconds General Appearance: No Apparent Distress HEENT: Other (exopthalmos) Neck: Supple Respiratory: Lungs Clear, Normal Breath Sounds, No Accessory Muscle Use, No Respiratory Distress Cardiovascular: Regular Rate, Rhythm, No Gallop, No Murmur Gastrointestinal: Soft, Guarding, Tenderness Rectal: Deferred Back: Normal Inspection Extremity: Normal Range of Motion, Non Tender, No Pedal Edema Results/Procedures Lab Patient resulted labs reviewed. Assessment/Plan Assessment and Plan Assess & Plan/Chief Complaint Acute on chronic diverticulitis Bradycardia will hold Toprol as patient's pulse is only up into the 50's today- asymptomatic, will place on telemetry History of hypertension good control Plan to increase ambulation, and advance diet. Discussed possible resection of area of chronic diverticulitis Diagnosis/Problems Diagnosis/Problems (1) Bradycardia with 41-50 beats per minute Status: Acute (2) Hypertension Status: Chronic Qualifiers: Hypertension type: essential hypertension Qualified Codes: I10 - Essential (primary) hypertension (3) Abdominal pain Status: Acute Qualifiers: Abdominal location: right upper quadrant Qualified Codes: R10.11 - Right upper quadrant pain (4) Acute diverticulitis Status: Acute Clinical Quality Measures DVT/VTE Risk/Contraindication: Risk Factor Score Per Nursin RFS Level Per Nursing on Admit: 4+=Very High BRADLEY BOYLE MD Aug 15, 2017 9:40 am
--- NOTE | 2017-08-15 10:19 | Progress Note (SOAP) ---
Subjective Date Seen by Provider: Aug 15, 2017 Time Seen by Provider: 10:10 Subjective/Events-last exam Patient seen with Dr. Zuñiga. Patient reports feeling better today. Reports PO pain meds are working better and pain is more tolerable. Still having diarrhea and LLQ pain. Occasional nausea but no vomiting. Tolerating diet and would like more substantial food. Ambulating more. Objective Exam Vital Signs Date Time Temp Pulse Resp B/P (MAP) Pulse Ox O2 Delivery O2 Flow Rate FiO2 08/15/17 07:55 97.7 51 18 161/74 (103) 97 Room Air 08/15/17 06:45 51 08/15/17 01:00 53 08/15/17 00:00 98.0 54 17 139/67 (91) 96 Room Air 08/14/17 19:00 52 08/14/17 16:20 97.2 48 18 142/77 (98) 95 Room Air 08/14/17 13:00 42 08/14/17 11:26 98.4 48 20 174/84 (114) 95 Room Air I & O 08/15/17 07:00 Intake Total 3447 ml Output Total 4650 ml Balance -1203 ml Capillary Refill : Less Than 3 SecondsLess Than 3 Seconds General Appearance: No Apparent Distress, WD/WN Neck: Full Range of Motion, Normal Inspection, Non Tender, Supple Respiratory: Lungs Clear, Normal Breath Sounds, No Accessory Muscle Use, No Respiratory Distress Cardiovascular: Regular Rate, Rhythm, No Edema Gastrointestinal: normal bowel sounds, soft, tenderness (LLQ) Extremity: Normal Inspection, Normal Range of Motion, No Pedal Edema Neurologic/Psychiatric: Alert, Oriented x3 Skin: Normal Color, Warm/Dry Results Lab Microbiology 08/09/17 Blood Culture - Final, Complete No growth Assessment/Plan Assessment/Plan Assess & Plan/Chief Complaint A 72 year old female with acute episode of diverticulitis. She reports that she has had episodes of diverticulitis in the past. She also has a Personal history of recurrent polyps. VSS. Will continue with IV fluids and abx. Increase diet to low residue Continue nausea and pain meds prn. Clinical Quality Measures DVT/VTE Risk/Contraindication: Risk Factor Score Per Nursin RFS Level Per Nursing on Admit: 4+=Very High CHINTAN MITCHELL [employer] Aug 15, 2017 10:19 am
[2017-08-15] MEDS: ONDANSETRON 4 MG/2 ML (SDV) Z0FRAN IVP PRN ×2 (14:07→21:29)
[2017-08-15 16:50] VITALS: BP 126/76
[2017-08-15] MEDS: ALPRAZolam 0.5 MG (XANAX) TAB PO SCH (20:01)
[2017-08-15] MEDS: ENOXAPARIN 40 MG/0.4 ML (LOVENOX) SYR SC SCH (20:02)
[2017-08-16] VITALS: BP 164/69
[2017-08-16] MEDS: fentaNYL INJECTION 100 MCG/2 ML AMP IVP PRN ×2 (00:06→13:08)
[2017-08-16] MEDS: cefTRIAXone 1 GM/NS 50 ML IVPB IV SCH ×2 (02:59)
[2017-08-16] MEDS: LACTATED RINGERS 1,000 ML IV SCH ×2 (05:15→10:01)
[2017-08-16 05:43] VITALS: BP 160/80
[2017-08-16] MEDS: LEVOTHYROXINE 88 MCG (LEVOTHORID) TAB PO SCH (05:49)
[2017-08-16] MEDS: HYDROcodone/APAP 5 MG/325 MG (LORTAB) TAB PO PRN ×3 (05:49→23:09)
[2017-08-16] MEDS: metroNIDAZOLE 500MG/100ML IVPB 100 ML IV SCH (05:50)
[2017-08-16 07:33] VITALS: BP 141/81
[2017-08-16] MEDS: PRAZOSIN 1 MG CAPSULE (MINIPRESS) NON-FORMULARY PO SCH (08:42)
[2017-08-16] MEDS: buPROPion SR 150 MG (WELLBUTRIN SR) TAB PO SCH (08:42)
[2017-08-16] MEDS: ASPIRIN E.C. 81 MG (ECOTRIN) TAB PO SCH (08:42)
[2017-08-16] MEDS: meTOproloL SUCCINATE 50 MG (TOPROL XL) TAB PO SCH (08:42)
[2017-08-16] MEDS: amLODIPine 5 MG (NORVASC) TAB PO SCH (08:42)
[2017-08-16 12:00] VITALS: BP 151/70
[2017-08-16] MEDS: ONDANSETRON 4 MG/2 ML (SDV) Z0FRAN IVP PRN (13:08)
--- NOTE | 2017-08-16 15:07 | Progress Note-Hospitalist ---
Subjective HPI/CC On Admission Date Seen by Provider: Aug 16, 2017 Time Seen by Provider: 11:55 The patient was a 72-year-old white female who presented to the emergency room yesterday with complaints of left lower quadrant abdominal pain. CT scan suggested diverticulitis in the sigmoid colon area. She reports that she has had repeated episodes of diverticulitis going back as long as 5 years ago. Her last episode was in April however she is unable to remember whether this was April 2016 or . During the first attack 5 years ago she had red blood in her stool. She has had colonoscopies and [place] but is unable to remember how long ago her last colonoscopy was. There have apparently been polyps and polypectomy use with these as well she states that it had been recommended that she go to a one-year schedule on her colonoscopies. I reviewed her CT scan and am concerned about what appears to be thickened colonic wall Just distal to the splenic flexure. Subjective/Events-last exam Pt reports feeling better but did not sleep well last night due to pain and has not gotten out of bed due to that. Otherwise tolerating her current diet. Objective Exam Vital Signs Vital Signs Date Time Temp Pulse Resp B/P (MAP) Pulse Ox O2 Delivery O2 Flow Rate FiO2 08/16/17 13:00 66 08/16/17 12:00 97.7 20 151/70 (97) 94 Room Air Capillary Refill : Less Than 3 SecondsLess Than 3 Seconds General Appearance: No Apparent Distress, WD/WN Respiratory: Lungs Clear, No Respiratory Distress Cardiovascular: Regular Rate, Rhythm, No Murmur Gastrointestinal: Non Tender, Soft Neurologic/Psychiatric: Alert, Oriented x3 Results/Procedures Lab Patient resulted labs reviewed. Assessment/Plan Assessment and Plan Assess & Plan/Chief Complaint Acute Diverticulitis Diagnosis/Problems Diagnosis/Problems (1) Acute diverticulitis Status: Acute Assessment & Plan: Surgery consulted, appreciate recs Discussed with Dr Chavez- improving Likely will be ready for DC tomorrow Encouraged ambulation Will need to follow up with Dr Chavez in 2 weeks to arrange colonoscopy Continue current pain regimen (2) Bradycardia with 41-50 beats per minute Status: Acute Assessment & Plan: Hold metoprolol (3) Hypertension Status: Chronic Assessment & Plan: Mildly elevated Will increase amlodipine Qualifiers: Hypertension type: essential hypertension Qualified Codes: I10 - Essential (primary) hypertension Clinical Quality Measures DVT/VTE Risk/Contraindication: Risk Factor Score Per Nursin RFS Level Per Nursing on Admit: 4+=Very High PREETHI OCAMPO MD Aug 16, 2017 3:07 pm
--- NOTE | 2017-08-16 16:05 | Progress Note (SOAP) ---
Subjective Date Seen by Provider: Aug 16, 2017 Time Seen by Provider: 13:25 Subjective/Events-last exam Abdominal pain improving. Tolerating diet Review of Systems General: No Chills, No Night Sweats, No Fatigue, No Malaise HEENT: No Head Aches, No Eye Pain, No Ear Pain, No Dysphasia, No Sinus Congestion, No Post Nasal Drip, No Sore Throat Pulmonary: No Dyspnea, No Cough, No Pleuritic Chest Pain Cardiovascular: No: Chest Pain, Palpitations, Orthopnea, Paroxysmal Noc. Dyspnea, Edema, Lt Headedness Gastrointestinal: No: Nausea, Vomiting, Abdominal Pain, Diarrhea, Constipation , Melena, Hematochezia Genitourinary: No Dysuria, No Frequency, No Incontinence, No Hematuria, No Retention Musculoskeletal: No: other, neck pain, shoulder pain, arm pain, back pain, hand pain, leg pain, foot pain Neurological: No: Weakness, Numbness, Incoordination, Change in speech, Confusion, Seizures, Other Objective Exam Vital Signs Date Time Temp Pulse Resp B/P (MAP) Pulse Ox O2 Delivery O2 Flow Rate FiO2 08/16/17 13:00 66 08/16/17 12:00 97.7 54 20 151/70 (97) 94 Room Air 08/16/17 07:33 98.3 54 18 141/81 (101) 97 Room Air 08/16/17 07:00 52 08/16/17 05:43 56 160/80 (106) 08/16/17 01:00 52 08/16/17 00:00 99.4 64 20 164/69 (100) 96 Room Air 08/15/17 19:00 62 08/15/17 16:50 97.8 51 18 126/76 (93) 96 Room Air I & O 08/16/17 07:00 Intake Total 4120 ml Output Total 4750 ml Balance -630 ml Capillary Refill : Less Than 3 SecondsLess Than 3 Seconds General Appearance: Anxious Respiratory: Lungs Clear Cardiovascular: Regular Rate, Rhythm Gastrointestinal: non tender, soft Neurologic/Psychiatric: Alert, Oriented x3 Skin: Warm/Dry Results Lab Microbiology 08/09/17 Blood Culture - Final, Complete No growth Assessment/Plan Assessment/Plan Assess & Plan/Chief Complaint lady with left-sided abdominal pain with a new changes in her bowel habits. Personal history of recurrent polyps. Thickened descending colon with diverticula. Reasonable to treat with IV antibiotics and follow closely. Her previous colonoscopy reports would be requested from the outside hospital. If her clinical signs do not improve in 48 hours, a repeat CT scan would be obtained. lady with left-sided abdominal pain. Thickened descending colon with evidence of diverticulitis. We'll continue IV antibiotics and plan on outpatient colonoscopy in 2-3 weeks 08/11/17:lady with resolving sigmoid diverticulitis. Thickened proximal descending colon. Will advance diet slowly and possibly discharge in 48 hours. Plan on outpatient colonoscopy in 2-3 weeks 08/12/17: Lady with resolving sigmoid diverticulitis. Repeat CT negative for pericolic abscess. We'll continue current management. Outpatient colonoscopy in 2-3 weeks 08/13/17: Lady with resolving diverticulitis. Will advance to full liquids. Use oral pain medications. Lovenox for thromboprophylaxis 08/16/17: Lady with resolving diverticulitis. Could be discharged on oral antibiotics in a.m. Office follow-up in 2 weeks and plan for outpatient colonoscopy Final Diagnosis Diverticulitis Clinical Quality Measures DVT/VTE Risk/Contraindication: Risk Factor Score Per Nursin RFS Level Per Nursing on Admit: 4+=Very High ADRIANA MCDONOUGH MD Aug 16, 2017 4:05 pm
[2017-08-16 16:27] VITALS: BP 126/60
[2017-08-16 20:06] VITALS: BP 143/69
[2017-08-16] MEDS: ENOXAPARIN 40 MG/0.4 ML (LOVENOX) SYR SC SCH (20:09)
[2017-08-16] MEDS: ALPRAZolam 0.5 MG (XANAX) TAB PO SCH (21:13)
[2017-08-17 00:15] VITALS: BP 135/67
[2017-08-17 04:15] VITALS: BP 189/88
[2017-08-17] MEDS: HYDROcodone/APAP 5 MG/325 MG (LORTAB) TAB PO PRN ×2 (04:32→08:12)
[2017-08-17] MEDS: LEVOTHYROXINE 88 MCG (LEVOTHORID) TAB PO SCH (06:26)
[2017-08-17 06:49] VITALS: BP 178/79
[2017-08-17 08:00] VITALS: BP 166/70
[2017-08-17] MEDS: buPROPion SR 150 MG (WELLBUTRIN SR) TAB PO SCH (08:12)
[2017-08-17] MEDS: ASPIRIN E.C. 81 MG (ECOTRIN) TAB PO SCH (08:12)
[2017-08-17] MEDS: PRAZOSIN 1 MG CAPSULE (MINIPRESS) NON-FORMULARY PO SCH (08:14)
[2017-08-17] MEDS ORDERED: AMOX-358 PO (08:17)
[2017-08-17] MEDS ORDERED: ONDN4T PO (08:17)
[2017-08-17] MEDS ORDERED: L.AC1CAP6 PO (08:17)
[2017-08-17] MEDS ORDERED: ACHD5005 PO (08:17)
[2017-08-17] MEDS ORDERED: METR500T PO (08:17)
[2017-08-17] MEDS ORDERED: AMLO10TA2 PO (08:17)
--- NOTE | 2017-08-17 08:20 | Discharge Inst-Simple/Standard ---
Discharge Inst-Standard Discharge Medications New, Converted or Re-Newed RX: Call to Patients Pharmacy Patient Instructions/Follow Up Plan of Care/Instructions/FU: Please continue to take your antibiotics as written, even if you begin to feel better. Please follow up with Dr Chavez as scheduled and with your PCP in 1 week. Activity as Tolerated: Yes Discharge Diet: Low Residue Return to The Hospital For: Fever, abd pain, inability to keep down food/liquid, if you feel you are getting worse. Planned Outpatient Orders/Ref. Pneu Vac Indicated: Yes PREETHI OCAMPO MD Aug 17, 2017 8:20 am
--- NOTE | 2017-08-17 08:21 | Discharge Summary-Hospitalist ---
Diagnosis/Chief Complaint Date of Admission Aug 09, 2017 at 12:26 am Date of Discharge Discharge Date: Aug 17, 2017 Admission Diagnosis Sigmoid diverticulitis Discharge Diagnosis (1) Acute diverticulitis Status: Acute Assessment & Plan: Surgery consulted, appreciate recs Discussed with Dr Chavez- ready for DC Encouraged ambulation Will need to follow up with Dr Chavez in 2 weeks to arrange colonoscopy Continue current pain regimen (2) Hypertension Status: Chronic Assessment & Plan: Mildly elevated Will increase amlodipine and DC metoprolol due to bradycardia and no indication for BB noted (3) Bradycardia with 41-50 beats per minute Status: Acute Assessment & Plan: As above Discharge Summary Procedures/Consulations Dr Chavez- Surgery Discharge Physical Exam Allergies: Coded Allergies: Iodinated Contrast- Oral and IV Dye (Verified Allergy, Unknown, HIVES, ) Sulfa (Sulfonamide Antibiotics) (Verified Allergy, Unknown, HIVES, 07/20/17 ) lisinopril (Verified Allergy, Unknown, 08/09/17) codeine (Verified Adverse Reaction, Unknown, NAUSEA, 08/13/17) Vitals & I&Os Vital Signs Date Time Temp Pulse Resp B/P (MAP) Pulse Ox O2 Delivery O2 Flow Rate FiO2 08/17/17 08:00 97.9 53 18 166/70 (102) 95 Room Air General Appearance: Alert, Oriented X3 Respiratory: Clear to Auscultation Cardiovascular: Regular Rate Abdominal: Normal Bowel Sounds, Soft Hospital Course Pt was admitted for acute diverticulitis. She progressed slowly and had persistent abd pain. Ultimately her symptoms improved and she was able to tolerate was a low residue diet and her pain was controlled with oral medications. She was comfortable with plan to DC home today. She is to follow up with Dr Chavez in 2 weeks to schedule her colonoscopy. Labs (last 24 hrs) Microbiology 08/09/17 Blood Culture - Final, Complete No growth Patient resulted labs reviewed. Discussion & Recommendations Discharge Planning: >30 minutes discharge planning Discharge Home Medications: Active Scripts Active Probiotic (L.acidoph & Paracasei,B.lactis) 1 Each Capsule 1 Each PO AC Augmentin 875-125 Tablet (Amoxicillin/Potassium Clav) 1 Each Tablet 1 Each PO BID Flagyl (Metronidazole) 500 Mg Tablet 500 Mg PO BID Zofran (Ondansetron HCl) 4 Mg Tab 4 Mg PO Q8H Hydrocodone/Acetaminophen 5/325mg Tablet (Acetaminophen/Hydrocodone Bitart) 1 Tab Tab 1-2 Tab PO Q4H PRN Amlodipine Besylate 10 Mg Tablet 10 Mg PO DAILY Reported Vitamin B-12 (Cyanocobalamin (Vitamin B-12)) 1,000 Mcg Tablet 1,000 Mcg PO DAILY Synthroid (Levothyroxine Sodium) 88 Mcg Tablet 88 Mcg PO DAILY LAST FILLED #90 04-07-17 Minipress (Prazosin HCl) 1 Mg Capsule 1 Mg PO DAILY LAST FILLED #90 18 Pantoprazole Sodium 40 Mg Tablet.dr 40 Mg PO DAILY PRN Simvastatin 40 Mg Tablet 40 Mg PO HS Citalopram HBr (Citalopram Hydrobromide) 20 Mg Tablet 20 Mg PO DAILY Aspirin EC (Aspirin) 81 Mg Tablet.dr 81 Mg PO DAILY Alprazolam 0.5 Mg Tablet 0.5 Mg PO HS Bupropion HCl Sr (Bupropion HCl) 150 Mg Tablet.er 150 Mg PO DAILY Instructions to patient/family Please see electronic discharge instructions given to patient. Clinical Quality Measures DVT/VTE Risk/Contraindication: Risk Factor Score Per Nursin RFS Level Per Nursing on Admit: 4+=Very High Problem Qualifiers (1) Hypertension: Hypertension type: essential hypertension Qualified Codes: I10 - Essential ( primary) hypertension PREETHI OCAMPO MD Aug 17, 2017 08:21
[2017-08-17] MEDS ORDERED: amLODIPine 10 MG (NORVASC) TAB PO SCH (09:00)
[2017-08-17] MEDS ORDERED: amLODIPine 5 MG (NORVASC) TAB PO SCH (09:00)
[2017-08-20] MEDS ORDERED: ACHD5005 PO (08:28)
[2017-08-20] MEDS ORDERED: ALPR0.5T7 PO (08:28)
== END 2017-08-17 12:10 | disposition home or self-care (01) | DRG 392 ==
LOC: EDUNIT# 20:27 → ER 20:29 → 4TH 08-09 00:26
PROVIDERS: ADMIT Family Medicine; ATTEND Family Medicine
DX: K57.32 Diverticulitis of large intestine without perforation or abscess without bleeding (principal); I10 Essential (primary) hypertension; R00.1 Bradycardia, unspecified; F17.210 Nicotine dependence, cigarettes, uncomplicated; G47.30 Sleep apnea, unspecified; K21.9 Gastro-esophageal reflux disease without esophagitis; I25.10 Atherosclerotic heart disease of native coronary artery without angina pectoris; E78.5 Hyperlipidemia, unspecified; M19.91 Primary osteoarthritis, unspecified site; K59.09 Other constipation; E89.0 Postprocedural hypothyroidism; F41.9 Anxiety disorder, unspecified; F32.9 Major depressive disorder, single episode, unspecified; E66.09 Other obesity due to excess calories; Z68.34 Body mass index [BMI] 34.0-34.9, adult; Z86.010 Personal history of colon polyps; Z95.1 Presence of aortocoronary bypass graft; Z86.39 Personal history of other endocrine, nutritional and metabolic disease; Z86.69 Personal history of other diseases of the nervous system and sense organs; Z87.442 Personal history of urinary calculi
CPT/HCPCS: 36415; 74176; 74177; 80053; 81000; 82150; 83605; 83690; 85025; 87040; 96361; 96365; 96375; 96376

== ENCOUNTER 2017-08-18 18:01 | Observation (INO) | payer MEDICARE, OTHER ==
[~2017-08-18] VITALS: Ht 167.6 cm; Wt 99.3 kg
[~2017-08-18 18:01] MED LIST changes: +ACHD5005 PO; +AMLO10TA2 PO; +AMOX-358 PO; +ASPI-983 PO; +CITA20TA9 PO; +CYAN10006 PO; +L.AC1CAP6 PO; +LEVO88TA2 PO; +METO-370 PO; +METR500T PO; +ONDN4T PO; +PANT40TA3 PO; +PRAZ1CAP PO; +SIMV40TA4 PO
[2017-08-18 19:05] LABS: BASOPHILS # (AUTO) 0.1 10^3/uL (0.0-0.1); BASOPHILS % (AUTO) 1 % (0-10); EOSINOPHILS # (AUTO) 0.4 10^3/uL (0.0-0.3); EOSINOPHILS % (AUTO) 5 % (0-10); HEMATOCRIT 43 % (35-52); HEMOGLOBIN 14.1 G/DL (11.5-16.0); LYMPHOCYTES # (AUTO) 1.9 X 10^3 (1.0-4.0); LYMPHOCYTES % (AUTO) 22 % (12-44); MEAN CORPUSCULAR HEMOGLOBIN 30 PG (25-34); MEAN CORPUSCULAR HGB CONC 33 G/DL (32-36); MEAN CORPUSCULAR VOLUME 90 FL (80-99); MEAN PLATELET VOLUME 9.4 FL (7.4-10.4); MONOCYTES % (AUTO) 12 % (0-12); NEUTROPHILS # (AUTO) 5.1 X 10^3 (1.8-7.8); NEUTROPHILS % (AUTO) 61 % (42-75); PLATELET COUNT 257 10^3/uL (130-400); RED BLOOD COUNT 4.73 10^6/uL (4.35-5.85); RED CELL DISTRIBUTION WIDTH 15.1 % (10.0-14.5); WHITE BLOOD COUNT 8.3 10^3/uL (4.3-11.0)
[2017-08-18 19:16] LABS: BILIRUBIN,URINE NEGATIVE (NEGATIVE); CLARITY,URINE SLIGHTLY CLOUDY; COLOR,URINE YELLOW; GLUCOSE, URINE (UA) NEGATIVE (NEGATIVE); KETONES,URINE 1+ (NEGATIVE); LEUKOCYTE ESTERASE ,URINE 3+ (NEGATIVE); NITRITE,URINE NEGATIVE (NEGATIVE); PH,URINE 7 (5-9); PROTEIN,URINE 2+ (NEGATIVE); UROBILINOGEN,URINE 1 MG/DL (NORMAL)
[2017-08-18 19:19] LABS: BACTERIA,URINE TRACE /HPF
[2017-08-18 19:26] LABS: ALANINE AMINOTRANSFERASE 59 U/L (0-55); ALBUMIN 4.3 GM/DL (3.2-4.5); ALKALINE PHOSPHATASE 117 U/L (40-136); BILIRUBIN,TOTAL 0.6 MG/DL (0.1-1.0); BUN/CREATININE RATIO 11; CALCIUM 9.5 MG/DL (8.5-10.1); CARBON DIOXIDE 25 MMOL/L (21-32); CHLORIDE 104 MMOL/L (98-107); GFR ESTIMATED > 60; GLUCOSE 99 MG/DL (70-105); LIPASE 19 U/L (8-78); POTASSIUM 3.2 MMOL/L (3.6-5.0); SODIUM 139 MMOL/L (135-145); TOTAL PROTEIN 7.2 GM/DL (6.4-8.2)
--- NOTE | 2017-08-18 19:37 | ED Abdominal Pain ---
General Chief Complaint: Abdominal/GI Problems Stated Complaint: ACUTE DIVERTICULITIS Nursing Triage Note: ARRIVED VIA WC WITH COMPLAINTS OF LOWER ABD PAIN. STATES SHE WAS JUST DISCHARGED YESTERDAY FROM THIS FACILITY WITH DIVERTICULITIS. WAS FEELING BETTER UPON DISCHARGE BUT NOW SHE FEELS WORSE. Sepsis Screen: No Definite Risk Source of Information: Patient, Caregiver Exam Limitations: No Limitations History of Present Illness Date Seen by Provider: Aug 18, 2017 Time Seen by Provider: 19:34 Initial Comments The patient is a 72-year-old white female who presents with a chief complaint of abdominal pain and diarrhea. She was hospitalized here from 08/09 through and left yesterday just afternoon. She reports that she has had frequent small watery stools since that time. The pain seems to change by location and character. There has been no blood. She is not aware of fever and there have been no chills. CT scan at the time of that admission showed a sigmoid diverticulitis. There was also some concern about a thickened area just distal to the splenic flexure Timing/Duration: 24 Hours Allergies and Home Medications Allergies Coded Allergies: Iodinated Contrast- Oral and IV Dye (Verified Allergy, Unknown, HIVES, ) Sulfa (Sulfonamide Antibiotics) (Verified Allergy, Unknown, HIVES, 07/20/17 ) lisinopril (Verified Allergy, Unknown, 08/09/17) codeine (Verified Adverse Reaction, Unknown, NAUSEA, 08/13/17) Home Medications Alprazolam 0.5 Mg Tablet, 0.5 MG PO HS, (Reported) Amlodipine Besylate 10 Mg Tablet, 10 MG PO DAILY Prescribed by: PREETHI OCAMPO on 08/17/17816 Amoxicillin/Potassium Clav 1 Each Tablet, 1 EACH PO BID Prescribed by: PREETHI OCAMPO on 08/17/17816 Aspirin 81 Mg Tablet.dr, 81 MG PO DAILY, (Reported) Bupropion HCl 150 Mg Tablet.er, 150 MG PO DAILY, (Reported) Citalopram Hydrobromide 20 Mg Tablet, 20 MG PO DAILY, (Reported) Cyanocobalamin (Vitamin B-12) 1,000 Mcg Tablet, 1,000 MCG PO DAILY, (Reported) Hydrocodone Bit/Acetaminophen 1 Tab Tab, 1-2 TAB PO Q4H PRN for PAIN-MODERATE Prescribed by: PREETHI OCAMPO on 08/17/17816 LDarnellacidbang & Jannie Elizondo.lactis 1 Each Capsule, 1 EACH PO AC Prescribed by: PREETHI Marisol OCAMPO on 08/17/17816 Levothyroxine Sodium 88 Mcg Tablet, 88 MCG PO DAILY, (Reported) LAST FILLED #90 04-07-17 Metronidazole 500 Mg Tablet, 500 MG PO BID Prescribed by: PREETHIEarl OCAMPO on 08/17/17816 Ondansetron HCl 4 Mg Tab, 4 MG PO Q8H Prescribed by: PREETHIADAM OCAMPO on 08/17/17816 Pantoprazole Sodium 40 Mg Tablet.dr, 40 MG PO DAILY PRN for HEARTBURN, (Reported ) Prazosin HCl 1 Mg Capsule, 1 MG PO DAILY, (Reported) LAST FILLED #90 04-11-17 Simvastatin 40 Mg Tablet, 40 MG PO HS, (Reported) Patient Home Medication List Home Medication List Reviewed: Yes Review of Systems Constitutional: see HPI EENTM: No Symptoms Reported Respiratory: No Symptoms Reported Cardiovascular: No Symptoms Reported Gastrointestinal: See HPI, Abdomen Distended, Abdominal Pain, Diarrhea Genitourinary: No Symptoms Reported Musculoskeletal: no symptoms reported Skin: no symptoms reported Psychiatric/Neurological: No Symptoms Reported Endocrine: No Symptoms Reported Hematologic/Lymphatic: No Symptoms Reported Past Vrialyr-Swkbzr-Dmrtup Hx Patient Social History Alcohol Use: Denies Use Recreational Drug Use: No Smoking Status: Current Everyday Smoker Type Used: Cigarettes Recent Foreign Travel: No Contact w/Someone Who Travel: No Recent Infectious Disease Expo: No Recent Hopitalizations: No Immunizations Up To Date Tetanus Booster (TDap): Unknown Seasonal Allergies Seasonal Allergies: No Past Medical History Surgeries: Yes (thyroid ablation) Adenoidectomy, Appendectomy, CABG, Gallbladder, Hysterectomy, Tonsillectomy Respiratory: Yes Sleep Apnea Currently Using CPAP: Yes Cardiac: Yes Coronary Artery Disease, High Cholesterol, Hypertension Neurological: Yes Headaches /Migraines SUPERVISOR SCOURING PADS History: Hysterectomy Kidney Stones Gastrointestinal: Yes Gastroesophageal Reflux, Chronic Constipation, Diverticulosis Musculoskeletal: Yes Arthritis, Chronic Back Pain Endocrine: Yes (grave's disease) Cancer: No Psychosocial: Yes Anxiety, Depression Integumentary: No Blood Disorders: Yes (anemia prior to hyst) Family Medical History Patient reports no known family medical history. Physical Exam Vital Signs Vital Signs - First Documented 08/18/17 18:45 Temp 98.9 Pulse 86 Resp 18 B/P (MAP) 156/106 (123) Pulse Ox 95 O2 Delivery Room Air Capillary Refill : Less Than 3 Seconds General Appearance: other (anxious appearing) HEENT: normal ENT inspection Neck: full range of motion Respiratory: chest non-tender, lungs clear, normal breath sounds, no respiratory distress, no accessory muscle use Cardiovascular: normal peripheral pulses, regular rate, rhythm, no edema, no gallop, no JVD, no murmur Gastrointestinal: abnormal bowel sounds (hypoactive) Extremities: normal range of motion, non-tender, normal inspection, no pedal edema, no calf tenderness, normal capillary refill, pelvis stable Back: normal inspection, no CVA tenderness, no vertebral tenderness Neurologic/Psychiatric: sociology professor II-XII nml as tested, no motor/sensory deficits, alert, normal mood/affect, oriented x 3 Skin: normal color, warm/dry Progress/Results/Core Measures Results/Orders Lab Results Laboratory Tests Test 08/18/17 19:00 08/18/17 19:05 Range/Units White Blood Count 8.3 4.3-11.0 10^3/uL Red Blood Count 4.73 4.35-5.85 10^6/uL Hemoglobin 14.1 11.5-16.0 G/DL Hematocrit 43 35-52 % Mean Corpuscular Volume 90 80-99 FL Mean Corpuscular Hemoglobin 30 25-34 PG Mean Corpuscular Hemoglobin Concent 33 32-36 G/DL Red Cell Distribution Width 15.1 H 10.0-14.5 % Platelet Count 257 130-400 10^3/uL Mean Platelet Volume 9.4 7.4-10.4 FL Neutrophils (%) (Auto) 61 42-75 % Lymphocytes (%) (Auto) 22 12-44 % Monocytes (%) (Auto) 12 0-12 % Eosinophils (%) (Auto) 5 0-10 % Basophils (%) (Auto) 1 0-10 % Neutrophils # (Auto) 5.1 1.8-7.8 X 10^3 Lymphocytes # (Auto) 1.9 1.0-4.0 X 10^3 Monocytes # (Auto) 1.0 0.0-1.0 X 10^3 Eosinophils # (Auto) 0.4 H 0.0-0.3 10^3/uL Basophils # (Auto) 0.1 0.0-0.1 10^3/uL Sodium Level 139 135-145 MMOL/L Potassium Level 3.2 L 3.6-5.0 MMOL/L Chloride Level 104 98-107 MMOL/L Carbon Dioxide Level 25 21-32 MMOL/L Anion Gap 10 5-14 MMOL/L Blood Urea Nitrogen 10 7-18 MG/DL Creatinine 0.90 0.60-1.30 MG/DL Estimat Glomerular Filtration Rate > 60 BUN/Creatinine Ratio 11 Glucose Level 99 70-105 MG/DL Calcium Level 9.5 8.5-10.1 MG/DL Total Bilirubin 0.6 0.1-1.0 MG/DL Aspartate Amino Transf (AST/SGOT) 70 H 5-34 U/L Alanine Aminotransferase (ALT/SGPT) 59 H 0-55 U/L Alkaline Phosphatase 117 40-136 U/L C-Reactive Protein High Sensitivity 0.43 0.00-0.50 MG/DL Total Protein 7.2 6.4-8.2 GM/DL Albumin 4.3 3.2-4.5 GM/DL Lipase 19 8-78 U/L Urine Color YELLOW Urine Clarity SLIGHTLY CLOUDY Urine pH 7 5-9 Urine Specific Mathias 1.010 L 1.016-1.022 Urine Protein 2+ H NEGATIVE Urine Glucose (UA) NEGATIVE NEGATIVE Urine Ketones 1+ H NEGATIVE Urine Nitrite NEGATIVE NEGATIVE Urine Bilirubin NEGATIVE NEGATIVE Urine Urobilinogen 1 NORMAL MG/DL Urine Leukocyte Esterase 3+ H NEGATIVE Urine RBC (Auto) 2+ H NEGATIVE Urine RBC 2-5 H /HPF Urine WBC 10-25 H /HPF Urine Squamous Epithelial Cells 10-25 H /HPF Urine Crystals NONE /LPF Urine Bacteria TRACE /HPF Urine Casts NONE /LPF Urine Mucus NEGATIVE /LPF Urine Culture Indicated YES Vital Signs/I&O 08/18/17 18:45 Temp 98.9 Pulse 86 Resp 18 B/P (MAP) 156/106 (123) Pulse Ox 95 O2 Delivery Room Air Blood Pressure Mean: 123 Departure Impression Primary Impression: diarrhea Additional Impression: subacute sigmoid diverticulitis Disposition: ADMITTED INPATIENT Condition: Stable/Unchanged Admissions Decision to Admit Reason: Admit from ER (General) Decision to Admit/Date: Aug 18, 2017 Time/Decision to Admit Time: 20:03 Departure-Patient Inst. Referrals: THAI,KIRT A ACID CRANE OPERATOR-C (PCP/Family) Primary Care Physician PADMINI WALKER MD Aug 18, 2017 19:37
[2017-08-18 21:00] VITALS: BP 191/91
[2017-08-18] MEDS: LACTATED RINGERS 1,000 ML IV SCH (22:00)
[2017-08-18] MEDS: fentaNYL INJECTION 100 MCG/2 ML AMP IV PRN (22:00)
[2017-08-19] VITALS: BP 174/90
[2017-08-19] MEDS: fentaNYL INJECTION 100 MCG/2 ML AMP IV PRN ×3 (02:05→09:50)
[2017-08-19 04:00] VITALS: BP 125/67
[2017-08-19] MEDS: LACTATED RINGERS 1,000 ML IV SCH ×2 (06:09→16:31)
[2017-08-19 06:25] LABS: ALANINE AMINOTRANSFERASE 55 U/L (0-55); ALBUMIN 3.8 GM/DL (3.2-4.5); ALKALINE PHOSPHATASE 103 U/L (40-136); BILIRUBIN,TOTAL 0.8 MG/DL (0.1-1.0); BUN/CREATININE RATIO 9; CALCIUM 9.3 MG/DL (8.5-10.1); CARBON DIOXIDE 25 MMOL/L (21-32); CHLORIDE 105 MMOL/L (98-107); CREATININE SERUM 0.77 MG/DL (0.60-1.30); GFR ESTIMATED > 60; GLUCOSE 92 MG/DL (70-105); POTASSIUM 3.1 MMOL/L (3.6-5.0); SODIUM 140 MMOL/L (135-145); TOTAL PROTEIN 6.3 GM/DL (6.4-8.2)
[2017-08-19 08:00] VITALS: BP 125/68
[2017-08-19] MEDS: POTASSIUM CL 10MEQ/50ML IVPB 50 ML IV SCH (08:55)
--- NOTE | 2017-08-19 11:46 | Progress Note-Standard ---
Standard Progress Note Progress Notes/Assess & Plan Date Seen by Provider: Aug 19, 2017 Time Seen by Provider: 10:30 Progress/Assessment & Plan Patient readmitted with inability to sustain at home and increased pain. Vital signs are stable. Minimal suprapubic tenderness on examination. No evidence of peritonitis. Doubt there is any benefit in repeating the CT scan since the last study was completed quite recently. The hospitalist is in the process of seeking some assisted living facilities to help with heart recovery. She'll be followed up in about 10 days as scheduled before and an outpatient colonoscopy would be arranged subsequently. Hypokalemia, being replaced by the hospitalist , Final Diagnosis Sigmoid diverticulitis. ADRIANA MCDONOUGH MD Aug 19, 2017 11:46 am
[2017-08-19 12:00] VITALS: BP 135/73
--- NOTE | 2017-08-19 12:12 | Short Stay Summary-Hospitalist ---
History of Present Illness HPI/Chief Complaint Pt is a 72yoCF known to me from recent admission for diverticulitis. She was discharged on 08/17 and returned the evening of 08/18 as she worsened at home. She states that she went home and was up and about and then ate a sandwich and soup and her stomach started to hurt. It started in the lower left quadrant and then moved all over. She attempted to take her home pain medication but continued to have pain thus prompting her to seek evaluation in the ER. Due to inability to care for herself at home she was admitted to observation for assistance with [facility] placement. Source: patient Date Seen 08/19/17 Time Seen by Provider: 09:30 Attending Physician Preethi Chan MD PCP Jo-Ann Anderson Referring Physician Date of Admission Aug 18, 2017 at 8:32 pm Home Medications & Allergies Home Medications Reviewed patient Home Medication Reconciliation performed by pharmacy medication reconciliations field artillery targeting technician and/or nursing. Patients Allergies have been reviewed. Allergies Allergies Coded Allergies Iodinated Contrast- Oral and IV Dye (Verified Allergy, Unknown, HIVES, 07/20/17 ) Sulfa (Sulfonamide Antibiotics) (Verified Allergy, Unknown, HIVES, 07/20/17) lisinopril (Verified Allergy, Unknown, 08/09/17) codeine (Verified Adverse Reaction, Unknown, NAUSEA, 08/13/17) Past Xkxfnxq-Kkugkm-Rihgpq Hx Past Med/Social Hx: Reviewed Nursing Past Med/Soc Hx Patient Social History Alcohol Use: Denies Use Recreational Drug Use: No Smoking Status: Current Everyday Smoker Type Used: Cigarettes Physical Abuse Screen: No Sexual Abuse: No Recent Foreign Travel: No Contact w/other who traveled: No Recent Hopitalizations: No Recent Infectious Disease Expo: No Immunizations Up To Date Tetanus Booster (TDap): Unknown Seasonal Allergies Seasonal Allergies: No Past Medical History Surgeries: Adenoidectomy, Appendectomy, CABG, Gallbladder, Hysterectomy, Tonsillectomy Currently Using CPAP: Yes Cardiac: Coronary Artery Disease, High Cholesterol, Hypertension Neurological: Headaches /Migraines Hysterectomy Genitourinary: Kidney Stones Gastrointestinal: Gastroesophageal Reflux, Chronic Constipation, Diverticulosis Musculoskeletal: Arthritis, Chronic Back Pain Psychosocial: Anxiety, Depression History of Blood Disorders: Yes (anemia prior to hyst) Family History Patient reports no known family medical history. Review of Systems Constitutional: No chills, No fever EENTM: No blurred vision, No double vision, No nose congestion, No throat pain Respiratory: No cough, No dyspnea on exertion, No short of breath Cardiovascular: No chest pain, No edema, No palpitations Gastrointestinal: abdominal pain; No constipation; diarrhea; No loss of appetite; nausea; No vomiting Genitourinary: No dysuria, No frequency Musculoskeletal: No joint pain, No muscle pain Skin: No lesions, No rash Psychiatric/Neurological: Denies Headache, Denies Numbness, Denies Tingling Physical Exam Physical Exam Vital Signs Vital Signs - First Documented 08/18/17 18:45 Temp 98.9 Pulse 86 Resp 18 B/P (MAP) 156/106 (123) Pulse Ox 95 O2 Delivery Room Air Capillary Refill : Less Than 3 Seconds General Appearance: No Apparent Distress, WD/WN HEENT: PERRL/EOMI, Moist Mucous Membranes Neck: Non Tender, Supple Respiratory: Lungs Clear, No Respiratory Distress Cardiovascular: Regular Rate, Rhythm, No Murmur Gastrointestinal: Normal Bowel Sounds, Non Tender, Soft Extremity: Normal Capillary Refill, No Calf Tenderness Neurologic/Psychiatric: Alert, Oriented x3, Normal Mood/Affect Skin: Normal Color, Warm/Dry Results Results/Procedures Labs Laboratory Tests 08/18/17 19:00 08/19/17 05:48 Patient resulted labs reviewed. Short Stay Diagnosis Discharge Diagnosis-Short Stay Admission Diagnosis Subacute diverticulitis Final Discharge Diagnosis above Conclusion Plan Discussed with Dr Chavez till stable for DC from his point of view Will treat pain Referral sent for [facility] placemnt Awaiting acceptance Resume other home medications Clinical Quality Measures DVT/VTE Risk/Contraindication: Risk Factor Score Per Nursin RFS Level Per Nursing on Admit: 1=Low/No VTE PPX PREETHI CHAN MD Aug 19, 2017 12:12 pm
[2017-08-19] MEDS ORDERED: NON-FORMULARY MEDICATION 1 EA EA (Ondansetron HCl (Zofran) 4 MG) PO SCH (12:15)
[2017-08-19] MEDS ORDERED: PANTOPRAZOLE 40 MG (PROTONIX) TAB PO PRN (12:15)
[2017-08-19] MEDS ORDERED: NON-FORMULARY MEDICATION 1 EA EA (L.acidoph & Paracasei,B.lactis (Probiotic) 1 EACH) PO SCH (16:00)
[2017-08-19 16:15] VITALS: BP 154/86
[2017-08-19] MEDS: AUGMENTIN 875 MG TAB (AMOXICILLIN/CLAVULANATE) PO SCH (16:31)
[2017-08-19] MEDS: metroNIDAZOLE 500 MG (FLAGYL) TAB PO SCH (16:31)
[2017-08-19] MEDS: LACTOBACILLUS Acidoph/Bulgar (LACTINEX/FLORANEX) TAB PO SCH (16:31)
[2017-08-19] MEDS: HYDROcodone/APAP 5 MG/325 MG (LORTAB) TAB PO PRN (17:57)
[2017-08-19] MEDS: ONDANSETRON 4 MG (ZOFRAN) ORAL DISSOLVE TAB PO PRN (18:29)
[2017-08-19] MEDS: SIMvastatin 40 MG (ZOCOR) TAB PO SCH (20:44)
[2017-08-19] MEDS: ALPRAZolam 0.5 MG (XANAX) TAB PO SCH (20:44)
[2017-08-19 20:46] VITALS: BP 153/77
[2017-08-19] MEDS ORDERED: METRONIDAZOLE 500 MG PO SCH (21:00)
[2017-08-19] MEDS ORDERED: ATORVASTATIN 20 MG (LIPITOR) TABLET PO SCH (21:00)
[2017-08-20] VITALS: BP 158/86
[2017-08-20] MEDS: LACTATED RINGERS 1,000 ML IV SCH ×2 (03:39→14:02)
[2017-08-20] MEDS: metroNIDAZOLE 500 MG (FLAGYL) TAB PO SCH ×2 (06:10→16:16)
[2017-08-20] MEDS: AUGMENTIN 875 MG TAB (AMOXICILLIN/CLAVULANATE) PO SCH ×2 (06:10→16:17)
[2017-08-20] MEDS: LACTOBACILLUS Acidoph/Bulgar (LACTINEX/FLORANEX) TAB PO SCH ×3 (06:10→16:16)
[2017-08-20] MEDS ORDERED: LEVOTHYROXINE 88 MCG (LEVOTHORID) TAB PO SCH (06:30)
[2017-08-20 08:00] VITALS: BP 185/93
[2017-08-20] MEDS ORDERED: ALPR0.5T7 PO (08:28)
[2017-08-20] MEDS ORDERED: ACHD5005 PO (08:28)
[2017-08-20] MEDS ORDERED: ASPIRIN E.C. 81 MG (ECOTRIN) TAB PO SCH (09:00)
[2017-08-20] MEDS ORDERED: amLODIPine 10 MG (NORVASC) TAB PO SCH (09:00)
[2017-08-20] MEDS ORDERED: NON-FORMULARY MEDICATION 1 EA EA (Bupropion HCl (Bupropion HCl Sr) 150 MG) PO SCH (09:00)
[2017-08-20] MEDS ORDERED: NON-FORMULARY MEDICATION 1 EA EA (Amlodipine Besylate 10 MG) PO SCH (09:00)
[2017-08-20] MEDS ORDERED: PRAZOSIN HCL 1 MG PO SCH (09:00)
[2017-08-20] MEDS ORDERED: PRAZOSIN 1 MG CAPSULE (MINIPRESS) NON-FORMULARY PO SCH (09:00)
[2017-08-20] MEDS ORDERED: buPROPion SR 150 MG (WELLBUTRIN SR) TAB PO SCH (09:00)
--- NOTE | 2017-08-20 09:08 | Progress Note-Hospitalist ---
Subjective HPI/CC On Admission Date Seen by Provider: Aug 20, 2017 Time Seen by Provider: 08:05 Pt is a 72yoCF known to me from recent admission for diverticulitis. She was discharged on 08/17 and returned the evening of 08/18 as she worsened at home. She states that she went home and was up and about and then ate a sandwich and soup and her stomach started to hurt. It started in the lower left quadrant and then moved all over. She attempted to take her home pain medication but continued to have pain thus prompting her to seek evaluation in the ER. Due to inability to care for herself at home she was admitted to observation for assistance with [facility] placement. Subjective/Events-last exam Pt reports feeling better. No need for IV pain medications in >24 hours. Ready for DC. Objective Exam Vital Signs Vital Signs Date Time Temp Pulse Resp B/P (MAP) Pulse Ox O2 Delivery O2 Flow Rate FiO2 08/20/17 08:00 98.9 62 20 185/93 (123) 98 Room Air Capillary Refill : Less Than 3 Seconds General Appearance: No Apparent Distress, WD/WN Respiratory: Lungs Clear, No Respiratory Distress Cardiovascular: Regular Rate, Rhythm, No Murmur Gastrointestinal: Normal Bowel Sounds, Non Tender, Soft; No Distended, No Guarding Extremity: No Calf Tenderness, No Pedal Edema Neurologic/Psychiatric: Alert, Oriented x3 Results/Procedures Lab Patient resulted labs reviewed. Assessment/Plan Assessment and Plan Assess & Plan/Chief Complaint Will treat pain with home regimen Referral sent for NH placement Awaiting acceptance- DON to review today Resume other home medications DC when placement available Clinical Quality Measures DVT/VTE Risk/Contraindication: Risk Factor Score Per Nursin RFS Level Per Nursing on Admit: 1=Low/No VTE PPX PREETHI OCAMPO MD Aug 20, 2017 9:08 am
[2017-08-20] MEDS: ONDANSETRON 4 MG (ZOFRAN) ORAL DISSOLVE TAB PO PRN (12:07)
[2017-08-20] MEDS: HYDROcodone/APAP 5 MG/325 MG (LORTAB) TAB PO PRN ×3 (12:33→20:05)
[2017-08-20 16:00] VITALS: BP 115/63
[2017-08-20] MEDS: ALPRAZolam 0.5 MG (XANAX) TAB PO SCH (20:05)
[2017-08-20] MEDS: SIMvastatin 40 MG (ZOCOR) TAB PO SCH (20:05)
== END 2017-08-20 09:08 ==
LOC: EDUNIT# 18:01 → ER 18:02 → UNDOADMOB 20:32 → 4TH 20:32 → UNDODISOB 08-20 21:20
PROVIDERS: ADMIT Family Medicine; ATTEND Family Medicine
DX: K57.32 Diverticulitis of large intestine without perforation or abscess without bleeding (principal); E87.6 Hypokalemia; I25.10 Atherosclerotic heart disease of native coronary artery without angina pectoris; I10 Essential (primary) hypertension; E78.00 Pure hypercholesterolemia, unspecified; K21.9 Gastro-esophageal reflux disease without esophagitis; R82.99 Other abnormal findings in urine; Z79.899 Other long term (current) drug therapy; R19.7 Diarrhea, unspecified; K59.09 Other constipation; F41.9 Anxiety disorder, unspecified; F32.9 Major depressive disorder, single episode, unspecified; F17.210 Nicotine dependence, cigarettes, uncomplicated; Z95.1 Presence of aortocoronary bypass graft; Z79.82 Long term (current) use of aspirin
CPT/HCPCS: 36415; 80053; 81000; 82962; 83690; 85025; 85027; 86141; 87088; 87324; 87449; G0378

== ENCOUNTER 2017-09-09 10:15 | Outpatient (CLI) | payer MEDICARE, OTHER ==
[~2017-09-09] VITALS: Ht 167.6 cm; Wt 99.3 kg
[2017-09-09] MEDS ORDERED: CITA10TA7 PO (13:30)
[2017-09-09] MEDS ORDERED: PRAZ2CAP2 PO (13:30)
[2017-09-09] MEDS ORDERED: BISA-65 PO (13:30)
[2017-09-09] MEDS ORDERED: MAGN400O7 PO (13:30)
== END 2017-09-09 13:32 ==
LOC: PREOP 10:15
PROVIDERS: ATTEND Surgery
DX: Z01.818 Encounter for other preprocedural examination (principal)

== ENCOUNTER 2017-09-13 09:10 | Day surgery (SDC) | payer MEDICARE, OTHER ==
[~2017-09-13] VITALS: Ht 167.6 cm; Wt 99.3 kg
[~2017-09-13 09:10] MED LIST changes: +BISA-65 PO; +CITA10TA7 PO; +MAGN400O7 PO; +PRAZ2CAP2 PO
[2017-09-13] MEDS ORDERED: NS IV 500 ML 500 ML IV PRN (10:10)
[2017-09-13] MEDS ORDERED: NS IV 500 ML 500 ML ONE (10:13)
[2017-09-13] MEDS ORDERED: fentaNYL INJECTION 100 MCG/2 ML AMP ONE (10:27)
[2017-09-13] MEDS ORDERED: MIDAZOLAM 2 MG/2 ML (VERSED) VIAL ONE ×6 (10:27→11:19)
[2017-09-13 10:30] VITALS: BP 159/103
[2017-09-13] MEDS: MIDAZOLAM 2 MG/2 ML (VERSED) VIAL IVP PRN ×6 (11:08→11:22)
[2017-09-13] MEDS: fentaNYL INJECTION 100 MCG/2 ML AMP IVP PRN ×2 (11:09→11:12)
--- NOTE | 2017-09-13 11:35 | Conscious Sedation/ASA ---
Conscious Sedation Pre-Proced Time Reviewed: 10:55 ASA Class: 2 Airway Mallampati Classification: ([place] appropriate class) I. II. III, IV Lungs Heart ASA score ASA 1: a normal healthy patient ASA 2: a patient with a mild systemic disease (mid diabetes, controlled hypertension, obesity ASA 3: a patient with a severe systemic disease that limits activity (angina , COPD, prior Myocardial infarction) ASA 4: a patient with an incapacitating disease that is a constant threat to life (CHF, renal failure) ASA 5: a moribund patient not expected to survive 24 hrs. (ruptured aneurysm) ASA 6: a declared brain patient whose organs are being harvested. For emergent operations, add the letter E after the classification Grade 1 Sedation Plan: Discussed options with patient/fam Note The patient is an appropriate candidate to undergo the planned procedure, sedation, and anesthesia. The patient immediately re-assessed prior to indication. ADRIANA MCDONOUGH MD Sep 13, 2017 11:35 am
--- NOTE | 2017-09-13 11:38 | Endo Procedure Record ---
Endo Procedure Report Date of Procedure Last Colonoscopy: Yes (2016) Sep 13, 2017 Surgeon (s) ADRIANA MCDONOUGH MD Post Procedure/Op Diagnosis Resolved sigmoid diverticulitis 1 mm polyp 2 at the mid rectum Procedure Performed Colonoscopy to cecum Hot biopsy polypectomy 2 Description of Procedure Anesthesia Type: Conscious Sedation Specimen(s) collected/removed Rectal polyps Description of the Procedure Dictation for the procedure: This lady has a personal history of polyps and was admitted with severe sigmoid diverticulitis about a month ago. She will return for colonoscopy once her acute symptoms resolved. Informed consent was obtained after reviewing the procedure in detail. Description of procedure: She was placed in left lateral decubitus position and her vital signs were monitored. Conscious sedation was achieved using Versed and fentanyl. Examination of the perianal area revealed external hemorrhoids and skin tags. Digital examination was otherwise unremarkable. The colonoscope was then introduced in the rectum and advanced all the way up to the cecum. Scope was then withdrawn slowly and the mucosa examined in a systematic fashion. Findings: 1. 2 polyps, a millimeter each, adjacent to each other at the mid rectum. These were excised with hot biopsy forceps. 2. Resolved sigmoid diverticulosis without any stricture. She tolerated the procedure well and was taken back to the nursing area in a stable condition. Impression: Resolved sigmoid diverticulitis. Small rectal polyps excised. Recommend surveillance colonoscopy in 5 years. ADRIANA MCDONOUGH MD Sep 13, 2017 11:38 am
--- NOTE | 2017-09-13 11:40 | Discharge Inst-Simple/Standard ---
Discharge Inst-Standard Discharge Medications New, Converted or Re-Newed RX: Other Patient Instructions/Follow Up Plan of Care/Instructions/FU: Repeat colonoscopy in 5 years Activity as Tolerated: Yes Discharge Diet: No Restrictions ADRIANA MCDONOUGH MD Sep 13, 2017 11:40 am
[2017-09-13 12:00] VITALS: BP 129/74
[2017-09-13 12:30] VITALS: BP 127/72
[2017-09-13 13:40] VITALS: BP 127/72
== END 2017-09-13 13:40 | disposition home or self-care (01) ==
LOC: ENDO 09:10
PROVIDERS: ATTEND Surgery
DX: Z09 Encounter for follow-up examination after completed treatment for conditions other than malignant neoplasm (principal); K62.1 Rectal polyp; K64.4 Residual hemorrhoidal skin tags; Z86.010 Personal history of colon polyps; Z87.738 Personal history of other specified (corrected) congenital malformations of digestive system; Z79.82 Long term (current) use of aspirin